=== PATIENT | female | born 2000 ===

== ENCOUNTER 2019-03-16 12:55 | Inpatient (IN) | payer OTHER ==
[2019-03-16] VITALS (14 sets, daily range): BP systolic 123–154; BP diastolic 71–95
[~2019-03-16] VITALS: Ht 152.4 cm; Wt 75.1 kg
[2019-03-16] MEDS ORDERED: LACTATED RINGERS 1,000 ML IV ONE ×2 (16:15→20:30)
[2019-03-16] MEDS ORDERED: D5 LR IV SOLUTION 1,000 ML IV ONE (17:52)
[2019-03-16] MEDS ORDERED: D5 LR IV SOLUTION 1,000 ML IV SCH (18:04)
[2019-03-16] MEDS ORDERED: MINERAL OIL CONCENTRATE 99.9% 15 ML UDC PO PRN (18:15)
[2019-03-16 18:42] LABS: BASOPHILS % (AUTO) 0 % (0-10); EOSINOPHILS # (AUTO) 0.1 10^3/uL (0.0-0.3); EOSINOPHILS % (AUTO) 0 % (0-10); HEMATOCRIT 37 % (35-52); HEMOGLOBIN 12.3 G/DL (11.5-16.0); LYMPHOCYTES # (AUTO) 1.6 X 10^3 (1.0-4.0); LYMPHOCYTES % (AUTO) 11 % (12-44); MEAN CORPUSCULAR HEMOGLOBIN 25 PG (25-34); MEAN CORPUSCULAR HGB CONC 34 G/DL (32-36); MEAN CORPUSCULAR VOLUME 76 FL (80-99); MEAN PLATELET VOLUME 10.9 FL (7.4-10.4); MONOCYTES # (AUTO) 0.6 X 10^3 (0.0-1.0); MONOCYTES % (AUTO) 4 % (0-12); NEUTROPHILS # (AUTO) 12.5 X 10^3 (1.8-7.8); NEUTROPHILS % (AUTO) 85 % (42-75); PLATELET COUNT 211 10^3/uL (130-400); RED CELL DISTRIBUTION WIDTH 15.8 % (10.0-14.5); WHITE BLOOD COUNT 14.8 10^3/uL (4.3-11.0)
[2019-03-16] MEDS ORDERED: BUPIVACAINE 0.25% 30 ML (SENSORCAINE) VIAL ONE (18:49)
[2019-03-16] MEDS ORDERED: fentaNYL INJECTION 100 MCG/2 ML AMP ONE (18:49)
[2019-03-16] MEDS ORDERED: OXYTOCIN/NORMAL SALINE 500 ML IV ONE (18:59)
[2019-03-16] MEDS ORDERED: LACTATED RINGERS 1,000 ML IV SCH (19:00)
[2019-03-16] MEDS ORDERED: LIDOCAINE 1% INJ 20 ML 20 ML VIAL ONE (19:18)
[2019-03-16] MEDS ORDERED: LIDOCAINE/EPI 2% 1:200,00 (XYLOCAINE) 10 ML VIAL ONE (19:18)
--- NOTE | 2019-03-16 20:05 | History & Physical-OB ---
OB - Chief Complaint & HPI Date/Time Date of Admission: Date of Admission: Mar 16, 2019 at 18:00 Date seen by a Provider: Mar 16, 2019 Time Seen by a Provider: 20:00 Chief Complaint/History OB-Reason for Admission/Chief: Onset of Labor Hx : 1 Hx Para: 0 Expected Date of Delivery: Apr 04, 2019 Gestational Age in Weeks: 37 Gestational Age in Days: 2 Other B+, Ab neg Rub Non Immune Normal 1 hr GTT GBS neg Allergies and Home Medications Allergies Coded Allergies: No Known Drug Allergies (Unverified , 03/16/19) Patient Home Medication List Home Medication List Reviewed: Yes OB - History Hx of Present Care: Yes Ultrasounds: Normal mid trimester US Obstetrical Complications: Other (late care) Medical Complications: None Obstetrical History Hx : 1 Hx Para: 0 Patient Past Medical History Chronic Constipation Social History/Family History HIV/AIDS: No Recent Infectious Disease Expo: No Sexually Transmitted Disease: No Alcohol Use: Denies Use Recreational Drug Use: No 2nd Hand Smoke Exposure: No Immunizations Tetanus Booster (TDap): Less than 5yrs Date of Influenza Vaccine: Mar 08, 2019 Rubella: not immune RPR/VDRL: Negative GBS Status: Negative HBsAG: Negative OB - Admission Exam Physical Exam Vitals: Vital Signs 03/16/19 13:44 Temp 36.0 Pulse 78 Resp 16 Pulse Ox 99 O2 Delivery Room Air HEENT: NCAT Lungs: Clear Abdomen: Gravid Cervical Dilatation: 10cm Effacement: 100% Station: 0 Membranes: Ruptured Amniotic Fluid: Clear Heart Rate: 130's Accelerations: Accelerations Present Decelerations: Early Decelerations Short Term Variability: Present Labs Laboratory Tests Test 03/16/19 18:30 Range/Units White Blood Count 14.8 H 4.3-11.0 10^3/uL Red Blood Count 4.85 4.35-5.85 10^6/uL Hemoglobin 12.3 11.5-16.0 G/DL Hematocrit 37 35-52 % Mean Corpuscular Volume 76 L 80-99 FL Mean Corpuscular Hemoglobin 25 25-34 PG Mean Corpuscular Hemoglobin Concent 34 32-36 G/DL Red Cell Distribution Width 15.8 H 10.0-14.5 % Platelet Count 211 130-400 10^3/uL Mean Platelet Volume 10.9 H 7.4-10.4 FL Neutrophils (%) (Auto) 85 H 42-75 % Lymphocytes (%) (Auto) 11 L 12-44 % Monocytes (%) (Auto) 4 0-12 % Eosinophils (%) (Auto) 0 0-10 % Basophils (%) (Auto) 0 0-10 % Neutrophils # (Auto) 12.5 H 1.8-7.8 X 10^3 Lymphocytes # (Auto) 1.6 1.0-4.0 X 10^3 Monocytes # (Auto) 0.6 0.0-1.0 X 10^3 Eosinophils # (Auto) 0.1 0.0-0.3 10^3/uL Basophils # (Auto) 0.0 0.0-0.1 10^3/uL OB - Assessment/Plan/Diagnosis Assessment Assessment: active labor Admission Dx Labor Term 37 week gestation Admission Status: Inpatient Order (span 2 midnights) Reason for Inpatient Admission: Labor Plan Plan: Expectant Management Other Plan 18 yo @ 37.3 wga here for active labor Plan - Expectant management - Late care Copy Copies To 1: MAGGIE RICH MD, HOLLY R MD Mar 16, 2019 20:05
--- NOTE | 2019-03-16 20:11 | OB Labor & Delivery Record ---
Vag Delivery Note Vag Delivery Note Date of Delivery: 03/16/19 Preoperative Diagnosis: Josephine Tony is a (18 /Para 1 / 0,Gestational Age (wks)37with here for active labor Postoperative Diagnosis: Same Surgeon: MAGGIE RICH Supervisor Shearing: None Anesthesia: None Delivery Type: @ 191 Findings: Viable SGA female , apgars 8/9, weight 5#12, 2610 grams Lacerations: 3rd degree Intact placenta with 3 vessel cord. No nuchal cord, body cord or shoulder dystocia Estimated Blood Loss: 150 ml Complications: None Condition: Stable Description of Procedure: The patient is a 18 year old female who presented in active labor. She was admitted and informed consent was obtained. Her labor course was unremarkable. She progressed to complete dilatation and began to push. She was then set up for delivery. The 's head was delivered atraumatically in the HEIDI position. The shoulders and remainder of the infant's body were then delivered without difficulty. Upon delivery, the head was held below the level of the perineum and the mouth and nares were bulb suctioned. The cord was doubly clamped and cut by family member and the infant was handed off to the pediatric staff. An intact placenta with 3-vessel cord delivered via [place] and there was found to be minimal bleeding.~ Vigorous fundal massage was performed and the fundus was found to be firm. IV oxytocin was given. Examination of the vagina and perineum revealed a 3rd degree laceration repaired in the usual fashion with 3-0 vicryl suture. Following the repair, sponge, instrument and needle counts were correct. Mom and baby were both in stable condition in the labor suite. Vitals - Labs Vital Signs - I&O Vital Signs Date Time Temp Pulse Resp B/P (MAP) Pulse Ox O2 Delivery O2 Flow Rate FiO2 03/16/19 13:44 36.0 78 16 99 Room Air Labs Laboratory Tests 03/16/19 18:30: White Blood Count 14.8H, Red Blood Count 4.85, Hemoglobin 12.3, Hematocrit 37, Mean Corpuscular Volume 76L, Mean Corpuscular Hemoglobin 25, Mean Corpuscular Hemoglobin Concent 34, Red Cell Distribution Width 15.8H, Platelet Count 211, Mean Platelet Volume 10.9H, Neutrophils (%) (Auto) 85H, Lymphocytes (%) (Auto) 11L, Monocytes (%) (Auto) 4, Eosinophils (%) (Auto) 0, Basophils (%) (Auto) 0, Neutrophils # (Auto) 12.5H, Lymphocytes # (Auto) 1.6, Monocytes # (Auto) 0.6, Eosinophils # (Auto) 0.1, Basophils # (Auto) 0.0 MAGGIE RICH MD Mar 16, 2019 20:11
[2019-03-16] MEDS ORDERED: OXYTOCIN/NORMAL SALINE 500 ML IV SCH (20:12)
[2019-03-16] MEDS ORDERED: MEASLES,MUMPS,RUBELLA 1 EA INJ SQ ONE (20:15)
[2019-03-16] MEDS ORDERED: WITCH HAZEL(TUCKS) 40 EA JAR TOP PRN (20:15)
[2019-03-16] MEDS ORDERED: BENZOCAINE/MENTHOL (DERMOPLAST) 60 ML CAN TP PRN (20:15)
[2019-03-16] MEDS: DOCUSATE SODIUM 100 MG (COLACE) CAP PO SCH (21:00)
[2019-03-16] MEDS ORDERED: CATHETER FLUSH 10 ML SYR IV SCH ×2 (22:00)
[2019-03-17] MEDS: IBUPROFEN 600 MG (MOTRIN) TAB PO SCH ×4 (02:08→21:25)
[2019-03-17 02:30] VITALS: BP 120/72
[2019-03-17 05:35] LABS: BASOPHILS % (AUTO) 0 % (0-10); EOSINOPHILS % (AUTO) 0 % (0-10); HEMATOCRIT 32 % (35-52); HEMOGLOBIN 10.6 G/DL (11.5-16.0); LYMPHOCYTES # (AUTO) 1.9 X 10^3 (1.0-4.0); LYMPHOCYTES % (AUTO) 11 % (12-44); MEAN CORPUSCULAR HGB CONC 33 G/DL (32-36); MEAN CORPUSCULAR VOLUME 76 FL (80-99); MEAN PLATELET VOLUME 10.9 FL (7.4-10.4); MONOCYTES % (AUTO) 6 % (0-12); NEUTROPHILS # (AUTO) 13.5 X 10^3 (1.8-7.8); NEUTROPHILS % (AUTO) 82 % (42-75); PLATELET COUNT 191 10^3/uL (130-400); RED CELL DISTRIBUTION WIDTH 15.6 % (10.0-14.5); WHITE BLOOD COUNT 16.4 10^3/uL (4.3-11.0)
[2019-03-17 05:37] LABS: MEAN CORPUSCULAR HEMOGLOBIN 25 PG (25-34)
[2019-03-17 08:00] VITALS: BP 114/63
[2019-03-17] MEDS ORDERED: DIBUCAINE (NUPERCAINAL) 1% OINT 30 GM ONE (08:14)
[2019-03-17] MEDS: DOCUSATE SODIUM 100 MG (COLACE) CAP PO SCH ×2 (08:19→21:24)
[2019-03-17] MEDS ORDERED: DIBUCAINE (NUPERCAINAL) 1% OINT 30 GM TOP PRN (08:30)
[2019-03-17 12:00] VITALS: BP 106/65
[2019-03-17] MEDS: ACETAMINOPHEN 500 MG TAB (TYLENOL) PO SCH ×2 (12:08→17:45)
[2019-03-17 17:00] VITALS: BP 115/68
--- NOTE | 2019-03-17 18:51 | Progress Note ---
Subjective Subjective/Events-last exam No complaints. Pain controlled, bleeding slowed. Objective Exam Last Set of Vital Signs Vital Signs Date Time Temp Pulse Resp B/P (MAP) Pulse Ox O2 Delivery O2 Flow Rate FiO2 03/17/19 12:00 36.6 85 18 106/65 (79) 99 Room Air Capillary Refill : Less Than 3 Seconds I&O Intake and Output 03/17/19 00:00 Intake Total 1000 ml Balance 1000 ml Intake IV Total 1000 ml Daily Weight Change No General: Alert, No Acute Distress Psych/Mental Status: Mood NL Results/Procedures Lab Laboratory Tests 03/17/19 05:17: White Blood Count 16.4H, Red Blood Count 4.16L, Hemoglobin 10.6L, Hematocrit 32L , Mean Corpuscular Volume 76L, Mean Corpuscular Hemoglobin 25, Mean Corpuscular Hemoglobin Concent 33, Red Cell Distribution Width 15.6H, Platelet Count 191, Mean Platelet Volume 10.9H, Neutrophils (%) (Auto) 82H, Lymphocytes (%) (Auto) 11L, Monocytes (%) (Auto) 6, Eosinophils (%) (Auto) 0, Basophils (%) (Auto) 0, Neutrophils # (Auto) 13.5H, Lymphocytes # (Auto) 1.9, Monocytes # (Auto) 1.0, Eosinophils # (Auto) 0.0, Basophils # (Auto) 0.0 Assessment/Plan Assessment/Plan (1) Status post vaginal delivery Assessment & Plan: s/p at 37w2d -routine care - anticipate DC home tomorrow. Clinical Quality Measures DVT/VTE Risk/Contraindication: Risk Factor Score Per Nursin RFS Level Per Nursing on Admit: 2=Moderate COURT PENNY DO Mar 17, 2019 18:51
[2019-03-17 21:21] VITALS: BP 102/63
[2019-03-18] MEDS: ACETAMINOPHEN 500 MG TAB (TYLENOL) PO SCH ×3 (00:30→14:50)
[2019-03-18 03:15] VITALS: BP 109/58
[2019-03-18] MEDS: IBUPROFEN 600 MG (MOTRIN) TAB PO SCH ×3 (03:17→14:50)
[2019-03-18] MEDS: DOCUSATE SODIUM 100 MG (COLACE) CAP PO SCH (08:43)
[2019-03-18 08:45] VITALS: BP 115/64
[2019-03-18] MEDS ORDERED: IBUP-844 PO (13:25)
--- NOTE | 2019-03-18 13:27 | Short Stay Summary ---
Discharge Summary Hospital Course Problems/Dx: (1) Status post vaginal delivery Assessment & Plan: s/p at 37w2d -routine care Final Diagnosis: see Problem List Hospital Course Date of Admission: Mar 16, 2019 at 18:00 Date of Discharge: 03/18/19 Discharge Diagnosis: see Problem List Hospital Course: Routine care Labs and Pending Lab Test: Assessment/Pt Instructions follow-up with Dr. Freire in 6wk Discharge Instructions Discharge Diet: No Restrictions Activity as Tolerated: Yes Discharge Physical Examination General Appearance: Alert, Oriented X3, Cooperative Psych/Mental Status: Mood NL Allergies: Coded Allergies: No Known Drug Allergies (Unverified , 03/16/19) Copy Copies To 1: MAGGIE FREIRE MD Discharge Summary Date of Admission Mar 16, 2019 at 18:00 Date of Discharge Clinical Quality Measures DVT/VTE Risk/Contraindication: Risk Factor Score Per Nursin RFS Level Per Nursing on Admit: 2=Moderate COURT PENNY DO Mar 18, 2019 13:27
[2019-03-18 14:22] VITALS: BP 107/55
[2019-03-18 17:55] VITALS: BP 107/55
== END 2019-03-18 17:55 | disposition home or self-care (01) | DRG 768 ==
LOC: WSo 12:55 → LDRP 12:55 → WSo 17:59 → LDRP 18:00
PROVIDERS: ADMIT Family Medicine; ATTEND Family Medicine
PROC: 0DQR0ZZ Repair Anal Sphincter, Open Approach (ICD-10-PCS; principal; 2019-03-16)
PROC: 10E0XZZ Delivery of Products of Conception, External Approach (ICD-10-PCS; 2019-03-16)
DX: O76 Abnormality in fetal heart rate and rhythm complicating labor and delivery (principal); Z37.0 Single live birth; O70.20 Third degree perineal laceration during delivery, unspecified; Z3A.37 37 weeks gestation of pregnancy; Z23 Encounter for immunization
CPT/HCPCS: 36415; 85025; 86850; 86900; 86901; 90707; 99212

== ENCOUNTER 2020-06-17 04:17 | Outpatient (CLI) | payer SELFPAY ==
[~2020-06-17 04:17] MED LIST: IBUP-844 PO
[2020-06-17 05:55] VITALS: BP 114/63
[2020-06-17 05:59] VITALS: BP 114/63
[2020-06-17 06:19] VITALS: BP 114/63
[2020-06-17 08:32] LABS: BILIRUBIN,URINE NEGATIVE (NEGATIVE); CLARITY,URINE CLEAR; COLOR,URINE YELLOW; GLUCOSE, URINE (UA) NEGATIVE (NEGATIVE); KETONES,URINE NEGATIVE (NEGATIVE); LEUKOCYTE ESTERASE ,URINE 1+ (NEGATIVE); NITRITE,URINE NEGATIVE (NEGATIVE); PROTEIN,URINE NEGATIVE (NEGATIVE)
[2020-06-17 08:47] LABS: BACTERIA,URINE FEW /HPF
[2020-06-17 08:48] LABS: AMORPHOUS SEDIMENT,UR RARE AMOR PHOSPHATE /LPF
--- NOTE | 2020-06-18 07:44 | Physician Query-Final Dx ---
DUARTE FLOWERS 06/18/20 0744: Clinic Account Progress/Dx Physician Query: Please give diagnosis Please include # weeks gestation Date of Service Jun 17, 2020 at 04:17 BEAR LANGFORD MD 06/19/20 0641: Clinic Account Progress/Dx DIAGNOSIS: Diagnosis 1. IUP in 3rd trimester 2. Non labor 3.. Lack of smell (covid negative) DUARTE FLOWERS Jun 18, 2020 07:44 BEAR LANGFORD MD Jun 19, 2020 06:41
== END 2020-06-17 06:15 ==
LOC: WSo 04:17 → LDRP 04:17 → WSo 06:15
PROVIDERS: ATTEND Family Medicine
DX: O26.899 Other specified pregnancy related conditions, unspecified trimester (principal); Z3A.00 Weeks of gestation of pregnancy not specified
CPT/HCPCS: 81000; G0463; U0002; 87635; 99213

== ENCOUNTER 2020-07-03 16:24 | Inpatient (IN) | payer OTHER ==
[~2020-07-03] VITALS: Ht 154.9 cm; Wt 80.5 kg
[2020-07-03] VITALS (10 sets, daily range): BP systolic 94–118; BP diastolic 54–86
[2020-07-03] MEDS: D5 LR IV SOLUTION 1,000 ML IV SCH (17:56)
[2020-07-03] MEDS ORDERED: TERBUTALINE INJ 1 MG/ML (BRETHINE) AMP ONE (18:12)
[2020-07-03] MEDS ORDERED: METOCLOPRAMIDE INJ 10 MG/2 ML (REGLAN) ONE (18:21)
[2020-07-03] MEDS ORDERED: CITRIC ACID/SOB CIT (BICITRA) 30 ML UDC ONE (18:22)
[2020-07-03] MEDS ORDERED: FAMOTIDINE 20MG/2ML IV (PEPCID) ONE (18:22)
[2020-07-03] MEDS ORDERED: LACTATED RINGERS 1,000 ML IV PRN ×2 (18:30)
[2020-07-03] MEDS ORDERED: METOCLOPRAMIDE INJ 10 MG/2 ML (REGLAN) IV ONE (18:30)
[2020-07-03] MEDS ORDERED: TERBUTALINE INJ 1 MG/ML (BRETHINE) AMP SC ONE (18:30)
[2020-07-03] MEDS ORDERED: FAMOTIDINE 20MG/2ML IV (PEPCID) IV ONE (18:30)
[2020-07-03] MEDS ORDERED: CITRIC ACID/SOB CIT (BICITRA) 30 ML UDC PO ONE (18:30)
[2020-07-03] MEDS ORDERED: fentaNYL INJ 100 MCG/2 ML AMP ONE (18:32)
[2020-07-03 18:33] LABS: BASOPHILS # (AUTO) 0.1 10^3/uL (0.0-0.1); BASOPHILS % (AUTO) 0 % (0-10); EOSINOPHILS # (AUTO) 0.1 10^3/uL (0.0-0.3); EOSINOPHILS % (AUTO) 1 % (0-10); HEMATOCRIT 34 % (35-52); HEMOGLOBIN 10.7 g/dL (11.5-16.0); LYMPHOCYTES # (AUTO) 1.5 10^3/uL (1.0-4.0); LYMPHOCYTES % (AUTO) 13 % (12-44); MEAN CORPUSCULAR HEMOGLOBIN 23 pg (25-34); MEAN CORPUSCULAR HGB CONC 32 g/dL (32-36); MEAN CORPUSCULAR VOLUME 73 fL (80-99); MEAN PLATELET VOLUME 10.3 fL (9.0-12.2); MONOCYTES # (AUTO) 0.6 10^3/uL (0.0-1.0); MONOCYTES % (AUTO) 5 % (0-12); NEUTROPHILS # (AUTO) 9.2 10^3/uL (1.8-7.8); NEUTROPHILS % (AUTO) 80 % (42-75); PLATELET COUNT 164 10^3/uL (130-400); WHITE BLOOD COUNT 11.5 10^3/uL (4.3-11.0)
--- NOTE | 2020-07-03 18:35 | Consultation ---
History of Present Illness History of Present Illness Patient Consulted On(maría/time) 07/03/20 18:26 Date Seen by Provider: July 03, 2020 Time Seen by Provider: 18:20 Reason for Visit: late decelerations History of Present Illness Patient of Dr. Freire who presented to labor and delivery from the office due to contractions with variable decelerations. She is approximately 39 weeks p regnant. she has had two visits, today being the second. She had a baby 1 year ago. She has a possible history of undiagnosed Hirsprungs disease and reportedly had over 10 lbs of feces out during her last delivery. Her SO states she had a small BM yesterday, but hasn't had a large BM in a very long time. She started contractions last night and went to the clinic. There she was shivani every 3 minutes and had variable decelerations. On the monitor here, she is having late decelerations. It is nearly impossible to check her cervix due to the large mass of feces in the rectal vault. We have given a dose of terbutaline to decrease the contractions, but she is still having decelerations and is remote from delivery. Will plan an primary section. Risks, including bleeding, infection, injury to bowel, bladder and ureter has been explained the the patient. Co nsents were signed. Will use prophylactic antibiotics and SCDS Allergies and Home Medications Allergies Coded Allergies: No Known Drug Allergies (Unverified , 03/16/19) Home Medications Unable to Obtain Active Prescriptions or Reported Meds Patient Home Medication List Home Medication List Reviewed: Yes Past Uswqqbw-Wmbfxl-Pqsitz Hx Patient Social History 2nd Hand Smoke Exposure: No Recent Hopitalizations: No Immunizations Up To Date Tetanus Booster (TDap): Less than 5yrs PED Vaccines UTD: Yes Date of Influenza Vaccine: Mar 08, 2019 Seasonal Allergies Seasonal Allergies: No Past Medical History Surgeries: No Respiratory: No Cardiac: No Neurological: No Sexually Transmitted Disease: No HIV/AIDS: No Genitourinary: No Gastrointestinal: No Musculoskeletal: No Endocrine: No HEENT: No Loss of Vision: Denies Hearing Impairment: Denies Cancer: No Psychosocial: No Integumentary: No Blood Disorders: No Family Medical History Completed stroke PATERNAL GRANDFATHER Diabetes mellitus 19 FATHER 19 MOTHER MATERNAL GRANDFATHER PATERNAL GRANDFATHER Kidney disease 19 MOTHER Seizure disorder 19 MOTHER Visual disorder 19 FATHER 19 MOTHER Review of Systems-General Constitutional: no symptoms reported Respiratory: no symptoms reported Gastrointestinal: other (states she has had three BM during ) Musculoskeletal: no symptoms reported Physical Exam-General Problems Physical Exam Vital Signs Capillary Refill : General Appearance: WD/WN, no apparent distress Respiratory: chest non-tender, lungs clear, normal breath sounds Cardiovascular: regular rate, rhythm Comments cervical exam not possible contractions every 3 minutes, strong FHT 135 with accelerations but late decelerations, repetitive. Assessment/Plan Assessment/Plan Admission Diagnosis/Plan 1. 19 year old at 39 + weeks gestation 2. Non reassuring status remote from delivery\ 3. probable megacolon. Aggressive bowel regimen post , consider disimpaction Plan primary section Peds - [facility] Admission Status: Inpatient Order (span 2 midnights) JONG THOMSON DO July 03, 2020 18:35
[2020-07-03] MEDS ORDERED: ceFAZolin 2 GM IV Premixed 50 ML ONE (18:47)
[2020-07-03 18:55] LABS: ALANINE AMINOTRANSFERASE 9 U/L (0-55); ALBUMIN 3.3 GM/DL (3.2-4.5); ALKALINE PHOSPHATASE 210 U/L (40-136); BILIRUBIN,TOTAL 0.6 MG/DL (0.1-1.0); BUN/CREATININE RATIO 12; CALCIUM 8.6 MG/DL (8.5-10.1); CARBON DIOXIDE 23 MMOL/L (21-32); CHLORIDE 106 MMOL/L (98-107); CREATININE SERUM 0.67 MG/DL (0.60-1.30); GFR ESTIMATED > 60; GLUCOSE 97 MG/DL (70-105); POTASSIUM 3.6 MMOL/L (3.6-5.0); SODIUM 136 MMOL/L (135-145); TOTAL PROTEIN 7.4 GM/DL (6.4-8.2)
[2020-07-03] MEDS ORDERED: PHENYLEPHRINE 100 MCG/ML 10 ML (ANESTHESIA) SYR ONE (19:10)
[2020-07-03] MEDS ORDERED: ONDANSETRON 4 MG/2 ML (SDV) Z0FRAN ONE (19:10)
[2020-07-03] MEDS ORDERED: OXYTOCIN PRE-MIX DRIP 500 ML IV ONE ×2 (19:10→19:53)
[2020-07-03] MEDS ORDERED: KETOROLAC 30 MG/ML VIAL ONE (19:19)
--- NOTE | 2020-07-03 19:47 | History & Physical-OB ---
OB - Chief Complaint & HPI Date/Time Date of Admission: Date of Admission: July 03, 2020 at 18:56 Date seen by a Provider: July 03, 2020 Time Seen by a Provider: 18:45 Chief Complaint/History OB-Reason for Admission/Chief: Obstetrical Complication (Variable Decerations in clinic) Hx : 2 Hx Para: 1 Expected Date of Delivery: July 09, 2020 Gestational Age in Weeks: 39 Gestational Age in Days: 1 Indication for : other ( intolerance, Repetitive decerations) Other reason for admission: 19 yo @ 39.1 wga sent here by Dr Freire after seen in clinic with variable decerations. Patient with late care and only had [address] Freire at [facility]. Mother states that she started having ctxs early this AM. Denies any LOF or bleeding. + FM but states that it was decreased today compared to other days. Allergies and Home Medications Allergies Coded Allergies: No Known Drug Allergies (Unverified , 03/16/19) Home Medications Unable to Obtain Active Prescriptions or Reported Meds Patient Home Medication List Home Medication List Reviewed: Yes OB - History Hx of Present Care: No Ultrasounds: Other (26 week US) Information Induced Hypertension: No Maternal Gestational Diabetes: No Hemorrhage: No Obstetrical History Hx : 2 Hx Para: 11 Number of Living Children: 1 Patient Past Medical History Chronic Constipation, Martínez Colon Social History/Family History Smoking Cessation: Never smoker 2nd Hand Smoke Exposure: No Immunizations Hepatitis A: No Hepatitis B: No Tetanus Booster (TDap): Less than 5yrs Date of Influenza Vaccine: Mar 08, 2019 Rubella: immune RPR/VDRL: Negative GBS Status: Unknown HBsAG: Negative OB - Admission Exam Physical Exam HEENT: NCAT Heart: Rhythm Normal Lungs: Clear Abdomen: Gravid Cervical Dilatation: other (Unable to reach cervix due to stool load) Membranes: Intact Decelerations: Variable Decelerations Contractions on Admission: < 5 Minutes Apart Intensity: Moderate Labs Laboratory Tests Test 07/03/20 17:56 Range/Units White Blood Count 11.5 H 4.3-11.0 10^3/uL Red Blood Count 4.67 3.80-5.11 10^6/uL Hemoglobin 10.7 L 11.5-16.0 g/dL Hematocrit 34 L 35-52 % Mean Corpuscular Volume 73 L 80-99 fL Mean Corpuscular Hemoglobin 23 L 25-34 pg Mean Corpuscular Hemoglobin Concent 32 32-36 g/dL Red Cell Distribution Width 16.1 H 10.0-14.5 % Platelet Count 164 130-400 10^3/uL Mean Platelet Volume 10.3 9.0-12.2 fL Immature Granulocyte % (Auto) 1 % Neutrophils (%) (Auto) 80 H 42-75 % Lymphocytes (%) (Auto) 13 12-44 % Monocytes (%) (Auto) 5 0-12 % Eosinophils (%) (Auto) 1 0-10 % Basophils (%) (Auto) 0 0-10 % Neutrophils # (Auto) 9.2 H 1.8-7.8 10^3/uL Lymphocytes # (Auto) 1.5 1.0-4.0 10^3/uL Monocytes # (Auto) 0.6 0.0-1.0 10^3/uL Eosinophils # (Auto) 0.1 0.0-0.3 10^3/uL Basophils # (Auto) 0.1 0.0-0.1 10^3/uL Immature Granulocyte # (Auto) 0.1 0.0-0.1 10^3/uL Sodium Level 136 135-145 MMOL/L Potassium Level 3.6 3.6-5.0 MMOL/L Chloride Level 106 98-107 MMOL/L Carbon Dioxide Level 23 21-32 MMOL/L Anion Gap 7 5-14 MMOL/L Blood Urea Nitrogen 8 7-18 MG/DL Creatinine 0.67 0.60-1.30 MG/DL Estimat Glomerular Filtration Rate > 60 BUN/Creatinine Ratio 12 Glucose Level 97 70-105 MG/DL Calcium Level 8.6 8.5-10.1 MG/DL Corrected Calcium 9.2 8.5-10.1 MG/DL Total Bilirubin 0.6 0.1-1.0 MG/DL Aspartate Amino Transf (AST/SGOT) 14 5-34 U/L Alanine Aminotransferase (ALT/SGPT) 9 0-55 U/L Alkaline Phosphatase 210 H 40-136 U/L Total Protein 7.4 6.4-8.2 GM/DL Albumin 3.3 3.2-4.5 GM/DL OB - Assessment/Plan/Diagnosis Assessment Assessment: active labor, other ( intolerance) Admission Dx Labor Third Trimester 39 week gestation intolerance to labor Admission Status: Inpatient Order (span 2 midnights) Reason for Inpatient Admission: Labor Plan Other Plan 19 yo @ 39.1 wga with late care, variable decelerations Plan - intolerance getting worse with contractions, consult Dr Pradhan for Primary C/s - Martínez Colon: would consult General surgery during admission - Plans to bottle feed - labs pending Copy Copies To 1: MAGGIE FREIRE MD, HOLLY R MD July 03, 2020 19:47
--- NOTE | 2020-07-03 19:55 | Cesarean Section Operative ---
Procedure Procedure Note Pre-operative Diagnosis: Josephine Tony is a 19 /Para 2 / 1,Gestational Age 39 1/7 week with contractions, non reassuring status remote from delivery, megacolon with non descent Post-operative Diagnosis: same, severe constipation Procedure: primary low transverse section Physician: JONG THOMSON Golf Cart Assembler: Raphael Roque, MS III Estimated blood loss: 400 mL Disposition: stable Findings: Viable male , Apgars 7/, weight 6#14 ounces, intact placenta, 3vc, normal appearing uterus, tubes, and ovaries. particulate meconium Indications:Josephine Tony is a 19 /Para 2 / 1,Gestational Age 39 1/7 week with contractions, non reassuring status remote from delivery, Procedure Details: The patient was seen in pre-op and the procedure was discussed with the patient in full, including the risks, benefits, and alternatives. All questions were answered. The patient was taken to the operating room and a time out was performed, verifying patient and procedure. Fetus was noted to be in the left abdomen with the head off to the left but vertex. A large colonic mass was palpable in the left abdomen. After spinal anesthesia was placed by our anesthesia colleagues, the patient was placed in the dorsal supine with leftward tilt for uterine displacement.~ Her abdomen was then prepped and draped in the typical sterile fashion. A Pfannenstiel skin incision was made using a scalpel and carried down through the underlying fascia. The fascia was incised in the midline and tented up using Nicola clamps. On both the inferior and superior fascia side the rectus muscle was dissected off bluntly and sharply using Mason scissors. The peritoneum was identified and entered bluntly in the midline. This was then stretched laterally using manual strength. After entering the abdominal cavity and confirming lack of intraperitoneal adhesions, a large Lauro retractor was placed and the lower uterine segment was visualized. A very large loop of colon was noted in the le ft pelvis and the uterus was shifted to the left. the bladder was not able to empty completely due to a large colorectal mass of stool in the pelvis posterior to the bladder and uterus. The cervis was above this. A scalpel was utilized to make a low transverse uterine incision. Amniotomy was performed with an Allis clamp with return of particulate meconium stained fluid. The 's head was grasped and brought to the level of the incision with assistance of the silastic suction. Fundal pressure was applied and was delivered without difficulty. Mouth and nares were suctioned with bulb suction. After the umbilical cord was clamped and cut, the infant was handed off to the pediatric staff. A sample of cord blood was then obtained. The placenta was delivered intact via uterine massage. The uterus was cleared of all clots and debris. The uterine incision was closed using 0 Vicryl in a running locked fashion. A second imbricated layer was placed using 0 Vicryl in a running fashion as well. Bilateral tubes and ovaries appeared normal. The abdominal gutters were cleared of all clots and debris. A final check of the uterine incision showed it to be hemostatic. It was now noted that there was a large amount of firm stool noted in the colon up to and beyone the spleen There was a 6-8 cm ball in the left upper quadrant, near the spleen. there was an additional loop of bowel in the left pelvis lateral to the previously noted one. This also contained firm stool The left Infundibulopelvic ligament was noted to be stretched and attenuated over the loop of bowel and the uterus was shifted into the left pelvis and abdominal cavity. Posterior to the uterus, there was a very large colorectal mass of stool, approximately 12 cm by 12 cm or larger. The peritoneum was closed using 3-0 Vicryl in a running fashion. The fascia was closed with 0 PDS in a running fashion. The subcutaneous space was hemostatic, and irrigated. The subcutaneous space was closed with 3-0 Vicryl in several single interrupted stitches. The skin was then closed using 4-0 Monocryl in a running subcuticular fashion. The skin edges were reapproximated together and were hemostatic. A pressure dressing was applied. All sponge, lap and needle counts were correct at the end of the procedure per nursing. Vitals - Labs Labs Laboratory Tests 07/03/20 17:56: White Blood Count 11.5H, Red Blood Count 4.67, Hemoglobin 10.7L, Hematocrit 34L, Mean Corpuscular Volume 73L, Mean Corpuscular Hemoglobin 23L, Mean Corpuscular Hemoglobin Concent 32, Red Cell Distribution Width 16.1H, Platelet Count 164, Mean Platelet Volume 10.3, Immature Granulocyte % (Auto) 1, Neutrophils (%) (Auto) 80H, Lymphocytes (%) (Auto) 13, Monocytes (%) (Auto) 5, Eosinophils (%) (Auto) 1, Basophils (%) (Auto) 0, Neutrophils # (Auto) 9.2H, Lymphocytes # (Auto) 1.5, Monocytes # (Auto) 0.6, Eosinophils # (Auto) 0.1, Basophils # (Auto) 0.1, Immature Granulocyte # (Auto) 0.1, Sodium Level 136, Potassium Level 3.6, Chloride Level 106, Carbon Dioxide Level 23, Anion Gap 7, Blood Urea Nitrogen 8, Creatinine 0.67, Estimat Glomerular Filtration Rate > 60, BUN/Creatinine Ratio 12, Glucose Level 97, Calcium Level 8.6, Corrected Calcium 9.2, Total Bilirubin 0.6, Aspartate Amino Transf (AST/SGOT) 14, Alanine Aminotransferase (ALT/SGPT) 9, Alkaline Phosphatase 210H, Total Protein 7.4, Albumin 3.3 JONG THOMSON DO July 03, 2020 19:54
[2020-07-03] MEDS ORDERED: MEASLES,MUMPS,RUBELLA 1 EA INJ SC SCH (20:00)
[2020-07-03] MEDS ORDERED: OXYTOCIN PRE-MIX DRIP 500 ML IV SCH (20:00)
[2020-07-03] MEDS ORDERED: morphine INJ 4 MG/ML 1 ML (VIAL/SYRINGE) IVP PRN (20:00)
[2020-07-03] MEDS ORDERED: NALOXONE 0.4 MG/ML 1 ML (NARCAN) VIAL IV PRN (20:00)
[2020-07-03] MEDS ORDERED: diphenhydrAMINE 50 MG/ML INJ (BENADRYL) IV PRN (20:00)
[2020-07-03] MEDS ORDERED: ONDANSETRON 4 MG/2 ML (SDV) Z0FRAN IV PRN (20:00)
[2020-07-03] MEDS ORDERED: TETANUS,DIPTH,PERTUSS P/F (BOOSTRIX) 0.5 ML VIAL IM SCH (20:00)
[2020-07-03] MEDS ORDERED: polyethylene glycoL POWDER 17 GM (MIRALAX) PACK PO ONE (20:00)
[2020-07-03] MEDS: KETOROLAC 30 MG/ML VIAL IV SCH (20:09)
[2020-07-04] MEDS: KETOROLAC 30 MG/ML VIAL IV SCH ×3 (02:16→15:14)
[2020-07-04] MEDS: DOCUSATE SODIUM 100 MG (COLACE) CAP PO SCH ×3 (02:16→21:00)
[2020-07-04 02:17] VITALS: BP 113/59
[2020-07-04 05:24] LABS: BASOPHILS # (AUTO) 0.1 10^3/uL (0.0-0.1); BASOPHILS % (AUTO) 0 % (0-10); EOSINOPHILS # (AUTO) 0.1 10^3/uL (0.0-0.3); EOSINOPHILS % (AUTO) 1 % (0-10); HEMATOCRIT 26 % (35-52); HEMOGLOBIN 8.1 g/dL (11.5-16.0); LYMPHOCYTES # (AUTO) 1.5 10^3/uL (1.0-4.0); LYMPHOCYTES % (AUTO) 11 % (12-44); MEAN CORPUSCULAR HEMOGLOBIN 23 pg (25-34); MEAN CORPUSCULAR HGB CONC 31 g/dL (32-36); MEAN CORPUSCULAR VOLUME 74 fL (80-99); MEAN PLATELET VOLUME 10.5 fL (9.0-12.2); MONOCYTES % (AUTO) 7 % (0-12); NEUTROPHILS # (AUTO) 10.4 10^3/uL (1.8-7.8); NEUTROPHILS % (AUTO) 80 % (42-75); PLATELET COUNT 132 10^3/uL (130-400); WHITE BLOOD COUNT 13.1 10^3/uL (4.3-11.0)
[2020-07-04 05:25] VITALS: BP 110/57
[2020-07-04] MEDS ORDERED: polyethylene glycoL POWDER 17 GM (MIRALAX) PACK PO SCH (08:00)
[2020-07-04 08:15] VITALS: BP 122/71
[2020-07-04] MEDS: ACETAMINOPHEN 500 MG TAB (TYLENOL) PO SCH ×2 (08:33→20:39)
--- NOTE | 2020-07-04 08:38 | Anesthesia-Regional Post-Op ---
Regional Patient Condition Mental Status: Alert, Oriented x3 Circulation: Same as Pre-Op Headache: Absent Sensation: Full Recovery Motor Block: Absent Post Op Complications Complications None Follow Up Care/Instructions Patient Instructions None needed. Anesthesia/Patient Condition Patient is doing well, no complaints, stable vital signs, no apparent adverse anesthesia problems. No complications reported per nursing. BERNABE ROSA CRNA July 04, 2020 08:38
--- NOTE | 2020-07-04 08:56 | Postpartum Progress Note ---
Post Op Post-operative Day #1 s/p PLTCS Subjective: Patient is without complaints. Ambulating, voiding after knight removed. Tolerating a diet without nausea or vomiting. Normal lochia. Pain is well controlled with oral pain medications. not Passing flatus. not breast feeding. Objective: Laboratory Tests Test 07/03/20 17:56 07/04/20 05:08 Range/Units White Blood Count 11.5 H 13.1 H 4.3-11.0 10^3/uL Red Blood Count 4.67 3.50 L 3.80-5.11 10^6/uL Hemoglobin 10.7 L 8.1 #L 11.5-16.0 g/dL Hematocrit 34 L 26 L 35-52 % Mean Corpuscular Volume 73 L 74 L 80-99 fL Mean Corpuscular Hemoglobin 23 L 23 L 25-34 pg Mean Corpuscular Hemoglobin Concent 32 31 L 32-36 g/dL Red Cell Distribution Width 16.1 H 16.3 H 10.0-14.5 % Platelet Count 164 132 130-400 10^3/uL Mean Platelet Volume 10.3 10.5 9.0-12.2 fL Immature Granulocyte % (Auto) 1 1 % Neutrophils (%) (Auto) 80 H 80 H 42-75 % Lymphocytes (%) (Auto) 13 11 L 12-44 % Monocytes (%) (Auto) 5 7 0-12 % Eosinophils (%) (Auto) 1 1 0-10 % Basophils (%) (Auto) 0 0 0-10 % Neutrophils # (Auto) 9.2 H 10.4 H 1.8-7.8 10^3/uL Lymphocytes # (Auto) 1.5 1.5 1.0-4.0 10^3/uL Monocytes # (Auto) 0.6 1.0 0.0-1.0 10^3/uL Eosinophils # (Auto) 0.1 0.1 0.0-0.3 10^3/uL Basophils # (Auto) 0.1 0.1 0.0-0.1 10^3/uL Immature Granulocyte # (Auto) 0.1 0.1 0.0-0.1 10^3/uL Sodium Level 136 135-145 MMOL/L Potassium Level 3.6 3.6-5.0 MMOL/L Chloride Level 106 98-107 MMOL/L Carbon Dioxide Level 23 21-32 MMOL/L Anion Gap 7 5-14 MMOL/L Blood Urea Nitrogen 8 7-18 MG/DL Creatinine 0.67 0.60-1.30 MG/DL Estimat Glomerular Filtration Rate > 60 BUN/Creatinine Ratio 12 Glucose Level 97 70-105 MG/DL Calcium Level 8.6 8.5-10.1 MG/DL Corrected Calcium 9.2 8.5-10.1 MG/DL Total Bilirubin 0.6 0.1-1.0 MG/DL Aspartate Amino Transf (AST/SGOT) 14 5-34 U/L Alanine Aminotransferase (ALT/SGPT) 9 0-55 U/L Alkaline Phosphatase 210 H 40-136 U/L Total Protein 7.4 6.4-8.2 GM/DL Albumin 3.3 3.2-4.5 GM/DL Physical Exam: General - Alert and oriented, no apparent distress Abdomen - Soft, appropriately tender to palpation, non-distended, fundus firm at umbilicus Incision - clean, dry and intact; no erythema or induration, no drainage Extremities - no edema, negative Hi's bilaterally 1 Assessment: 1 post-operative day # 1, status post PLTCS. Recovering well, hemodynamically stable 2. Acute blood loss anemia 3. chronic constipation with impaction, possible Hirschprung's? Plan: Routine post-operative care. Encourage breast feeding. Encourage ambulation. XRAY pending. General surgery consult placed. VTE prophylaxis: SCDs. Ferrous sulfate supplementation. Plan for discharge tomorrow Vitals - Labs Vital Signs - I&O Vital Signs Date Time Temp Pulse Resp B/P (MAP) Pulse Ox O2 Delivery O2 Flow Rate FiO2 07/04/20 05:25 36.7 92 18 110/57 (74) 99 Room Air 07/04/20 02:17 36.0 95 18 113/59 (77) 99 Room Air 07/03/20 22:47 Room Air 07/03/20 22:10 37.0 88 18 106/55 (72) 96 Room Air 07/03/20 20:40 Room Air 07/03/20 20:40 36.3 20 118/68 (85) 99 Room Air 07/03/20 20:30 18 108/69 (82) 99 Room Air 07/03/20 20:28 Room Air 5/4/21 20:23 Room Air 07/03/20 20:20 18 108/66 (80) 100 Room Air 07/03/20 20:10 20 118/86 (97) 99 Room Air 07/03/20 20:10 Room Air 07/03/20 20:00 18 107/54 (71) 100 Room Air 07/03/20 19:55 36.2 18 94/62 (73) 98 Room Air 07/03/20 19:55 Room Air 07/03/20 18:49 120 18 100 Room Air 07/03/20 18:00 88 18 99 Non Rebreather 15.00 07/03/20 17:40 36.8 78 18 99 Room Air 07/03/20 17:35 36.8 78 18 113/65 (81) 99 Room Air I & O 07/04/20 07:00 Intake Total 400 ml Output Total 1075 ml Balance -675 ml Labs Laboratory Tests 07/03/20 17:56: White Blood Count 11.5H, Red Blood Count 4.67, Hemoglobin 10.7L, Hematocrit 34L, Mean Corpuscular Volume 73L, Mean Corpuscular Hemoglobin 23L, Mean Corpuscular Hemoglobin Concent 32, Red Cell Distribution Width 16.1H, Platelet Count 164, Mean Platelet Volume 10.3, Immature Granulocyte % (Auto) 1, Neutrophils (%) (Auto) 80H, Lymphocytes (%) (Auto) 13, Monocytes (%) (Auto) 5, Eosinophils (%) (Auto) 1, Basophils (%) (Auto) 0, Neutrophils # (Auto) 9.2H, Lymphocytes # (Auto) 1.5, Monocytes # (Auto) 0.6, Eosinophils # (Auto) 0.1, Basophils # (Auto) 0.1, Immature Granulocyte # (Auto) 0.1, Sodium Level 136, Potassium Level 3.6, Chloride Level 106, Carbon Dioxide Level 23, Anion Gap 7, Blood Urea Nitrogen 8, Creatinine 0.67, Estimat Glomerular Filtration Rate > 60, BUN/Creatinine Ratio 12, Glucose Level 97, Calcium Level 8.6, Corrected Calcium 9.2, Total Bilirubin 0.6, Aspartate Amino Transf (AST/SGOT) 14, Alanine Aminotransferase (ALT/SGPT) 9, Alkaline Phosphatase 210H, Total Protein 7.4, Albumin 3.3 07/04/20 05:08: White Blood Count 13.1H, Red Blood Count 3.50L, Hemoglobin 8.1#L, Hematocrit 26L , Mean Corpuscular Volume 74L, Mean Corpuscular Hemoglobin 23L, Mean Corpuscular Hemoglobin Concent 31L, Red Cell Distribution Width 16.3H, Platelet Count 132, Mean Platelet Volume 10.5, Immature Granulocyte % (Auto) 1, Neutrophils (%) (Auto) 80H, Lymphocytes (%) (Auto) 11L, Monocytes (%) (Auto) 7, Eosinophils (%) (Auto) 1, Basophils (%) (Auto) 0, Neutrophils # (Auto) 10.4H, Lymphocytes # (Auto) 1.5, Monocytes # (Auto) 1.0, Eosinophils # (Auto) 0.1, Basophils # (Auto) 0.1, Immature Granulocyte # (Auto) 0.1 JONG THOMSON DO July 04, 2020 08:56
--- NOTE | 2020-07-04 09:44 | Diagnostic Imaging Report ---
INDICATION: Megacolon, post delivery. TECHNIQUE: Single view of the abdomen 8:40 AM CORRELATION STUDY: None FINDINGS: There is large amount of stool within the colon. Somewhat disproportion distal colonic fecal loading present underlying impaction not excluded. Somewhat increased density suggested to the right of midline lower abdomen and pelvis. IMPRESSION: 1. Rather significant stool retention. Distal colonic fecal loading is noted. Question early impaction. 2. Increased density suggested over the right lower quadrant. Nonspecific. Given state could be owing to enlarged uterus. Dictated by: Dictated on workstation # [id number]
[2020-07-04] MEDS ORDERED: polyethylene glycoL Bowel Prep(MIRALAX) 238 GM PO SCH (10:45)
[2020-07-04] MEDS: polyethylene glycoL Bowel Prep(MIRALAX) 238 GM PO SCH ×6 (11:36→19:45)
[2020-07-04 12:30] VITALS: BP 113/66
[2020-07-04 17:00] VITALS: BP 105/64
[2020-07-04] MEDS: IBUPROFEN 600 MG (MOTRIN) TAB PO SCH (20:39)
[2020-07-04 20:40] VITALS: BP 107/62
--- NOTE | 2020-07-04 21:03 | Consultation - Surgery ---
History of Present Illness History of Present Illness Patient Consulted On(maría/time) 07/04/20 20:57 Date Seen by Provider: July 04, 2020 Time Seen by Provider: 10:19 Reason for Visit: late decelerations History of Present Illness Consult requested by Dr. Pradhan for fecal impaction Patient is a 19-year-old female who states that ever since she was a little kid would have lots of issues with bowel movements. Patient states that over the last year she is probably had 3-5 bowel movements that are normal. Patient states when she does have a bowel movement it is large. She has had to have disimpaction previously. Patient had yesterday and has pain from section but otherwise not having any pain. Patient states when she was younger she would have to have disimpaction manually to help with bowel movements as well. She does not have any blood in her stools regularly that she knows of. She denies any nausea vomiting fever sweats chills shortness of breath or chest pain at this time. Patient had abdominal x-ray which was consistent with fecal impaction. Allergies and Home Medications Allergies Coded Allergies: No Known Drug Allergies (Unverified , 03/16/19) Home Medications Unable to Obtain Active Prescriptions or Reported Meds Patient Home Medication List Home Medication List Reviewed: Yes Past Oeumhvs-Czhkiu-Gkojyw Hx Patient Social History Smoking Status: Never a Smoker 2nd Hand Smoke Exposure: No Recent Hopitalizations: No Immunizations Up To Date Tetanus Booster (TDap): Less than 5yrs PED Vaccines UTD: Yes Date of Influenza Vaccine: Mar 08, 2019 Seasonal Allergies Seasonal Allergies: No Surgeries History of Surgeries: Yes Surgeries: Section Respiratory History of Respiratory Disorde: No Cardiovascular History of Cardiac Disorders: No Neurological History of Neurological Disord: No Reproductive System Hx : 2 Hx Para: 11 Hx Total # of Abortions (Spona: 0 Sexually Transmitted Disease: No HIV/AIDS: No Genitourinary History of Genitourinary Disor: No Gastrointestinal History of Gastrointestinal Di: No Musculoskeletal History of Musculoskeletal Dis: No Endocrine History of Endocrine Disorders: No HEENT History of HEENT Disorders: No Loss of Vision: Denies Hearing Impairment: Denies Cancer History of Cancer: No Psychosocial History of Psychiatric Problem: No Integumentary History of Skin or Integumenta: No Blood Transfusions History of Blood Disorders: No Reviewed Nursing Assessment Reviewed/Agree w Nursing PMH: Yes Family Medical History Significant Family History: No Pertinent Family Hx Family Medial History: Completed stroke PATERNAL GRANDFATHER Diabetes mellitus 19 FATHER 19 MOTHER MATERNAL GRANDFATHER PATERNAL GRANDFATHER Kidney disease 19 MOTHER Seizure disorder 19 MOTHER Visual disorder 19 FATHER 19 MOTHER Review of Systems-General Constitutional: No chills, No diaphoresis EENTM: No blurred vision, No double vision Respiratory: No cough, No dyspnea on exertion, No short of breath Cardiovascular: No chest pain, No palpitations Gastrointestinal: constipation; No nausea, No vomiting Genitourinary: No decreased output, No discharge Musculoskeletal: No back pain, No joint pain Skin: No change in color, No change in hair/nails Psychiatric/Neurological: Denies Anxiety, Denies Depressed, Denies Emotional Problems All Other Systems Reviewed Negative Unless Noted: Yes (Negative excepted noted.) Physical Exam-General Problems Physical Exam Vital Signs Vital Signs - First Documented 07/03/20 07/03/20 17:35 18:00 Temp 36.8 Pulse 78 Resp 18 B/P (MAP) 113/65 (81) Pulse Ox 99 O2 Delivery Room Air O2 Flow Rate 15.00 Capillary Refill : Less Than 3 Seconds General Appearance: WD/WN, no apparent distress HEENT: PERRL/EOMI, normal ENT inspection Neck: non-tender, full range of motion, supple Respiratory: chest non-tender, no respiratory distress, no accessory muscle use Cardiovascular: regular rate, rhythm, no JVD Gastrointestinal: soft, tenderness (Slight tenderness from incision from section) Rectal: other (Patient with no palpable polyps masses or ulcerations. Patient with large fecal load in rectal vault consistent with fecal impaction) Back: no CVA tenderness, no vertebral tenderness Extremities: non-tender, normal inspection, no pedal edema Neurologic/Psychiatric: postal supervisor II-XII nml as tested, no motor/sensory deficits, al ert, normal mood/affect, oriented x 3 Skin: normal color, warm/dry Lymphatic: no adenopathy Data Review Labs Laboratory Tests 07/04/20 05:08: White Blood Count 13.1H, Red Blood Count 3.50L, Hemoglobin 8.1#L, Hematocrit 26L , Mean Corpuscular Volume 74L, Mean Corpuscular Hemoglobin 23L, Mean Corpuscular Hemoglobin Concent 31L, Red Cell Distribution Width 16.3H, Platelet Count 132, Mean Platelet Volume 10.5, Immature Granulocyte % (Auto) 1, Neutrophils (%) (Auto) 80H, Lymphocytes (%) (Auto) 11L, Monocytes (%) (Auto) 7, Eosinophils (%) (Auto) 1, Basophils (%) (Auto) 0, Neutrophils # (Auto) 10.4H, Lymphocytes # (Auto) 1.5, Monocytes # (Auto) 1.0, Eosinophils # (Auto) 0.1, Basophils # (Auto) 0.1, Immature Granulocyte # (Auto) 0.1 Assessment/Plan Assessment/Plan Assessment/Plan Status post section Chronic constipation Fecal impaction Patient on rectal exam had extremely large fecal load consistent with fecal impaction. Patient was disimpacted at bedside with nurse freelance copywriter and them assisting. Will also proceed with bowel regimen to evacuate the significant stool load. We will do soapsuds enema and MiraLAX prep. Patient is still on clear liquids at this time. Patient would likely benefit from bowel regimen such as MiraLAX daily and will likely need colonoscopy in near future to evaluate for any other causes of her constipation. BRYNN RIVERA DO July 04, 2020 21:03
[2020-07-05 03:30] VITALS: BP 90/52
[2020-07-05] MEDS: IBUPROFEN 600 MG (MOTRIN) TAB PO SCH ×4 (03:41→20:20)
[2020-07-05] MEDS: ACETAMINOPHEN 500 MG TAB (TYLENOL) PO SCH ×4 (03:45→23:56)
[2020-07-05] MEDS: DOCUSATE SODIUM 100 MG (COLACE) CAP PO SCH ×5 (03:45→21:33)
[2020-07-05] MEDS: CATHETER FLUSH 10 ML SYR IV SCH ×2 (08:49→08:50)
[2020-07-05] MEDS: polyethylene glycoL Bowel Prep(MIRALAX) 238 GM PO SCH ×3 (08:49→09:53)
[2020-07-05] MEDS: D5 LR IV SOLUTION 1,000 ML IV SCH ×3 (08:49→08:52)
--- NOTE | 2020-07-05 08:52 | Postpartum Progress Note ---
Post Op Post-operative Day #2 s/p PLTCS severe constipation/impaction Has had several BM after digital disimpaction and aggressive bowel regimen. s/p soap suds enema, several doses of miralax, but has declined any further miralax. Subjective: Patient is without complaints. Ambulating, voiding after knight removed. Tolerat ing a regular diet without nausea or vomiting. Normal lochia. Pain is well controlled with oral pain medications. Objective: 07/05/20 03:30 Temp 36.3 Pulse 73 Resp 18 B/P (MAP) 90/52 (65) O2 Delivery Room Air 07/05/20 00:00 Intake Total 1700 ml Output Total 500 ml Balance 1200 ml Physical Exam: General - Alert and oriented, no apparent distress Abdomen - Soft, appropriately tender to palpation, non-distended, fundus firm at umbilicus Incision - clean, dry and intact; no erythema or induration, no drainage, bowel sounds present in ruq and luq but not left Extremities - no edema, negative Hi's bilaterally [] Assessment: 1 post-operative day # 2, status post PLTCS. Recovering well, hemodynamically stable 2. severe constipation/impaction 3. Acute blood loss anemia Plan: Routine post-operative care. Encourage breast feeding. Encourage ambulation. VTE prophylaxis: SCDs. Ferrous sulfate supplementation. Plan for discharge today or tomorrow with bowel stimulation; will need GI or Gen surgery consult follow up Vitals - Labs Vital Signs - I&O Vital Signs Date Time Temp Pulse Resp B/P (MAP) Pulse Ox O2 Delivery O2 Flow Rate FiO2 07/05/20 03:30 36.3 73 18 90/52 (65) Room Air 07/04/20 20:40 36.3 82 20 107/62 (77) 99 Room Air 07/04/20 17:00 36.5 72 18 105/64 (78) 99 Room Air 07/04/20 12:30 36.2 89 18 113/66 (82) 100 Room Air I & O 07/05/20 07:00 Intake Total 2780 ml Output Total 500 ml Balance 2280 ml JONG THOMSON DO July 05, 2020 08:52
[2020-07-05] MEDS ORDERED: DCS100C PO (08:59)
[2020-07-05] MEDS ORDERED: magnes (08:59)
[2020-07-05] MEDS ORDERED: POLY238P32 PO (08:59)
[2020-07-05] MEDS ORDERED: ACET-93 PO (08:59)
[2020-07-05] MEDS ORDERED: IBUP-844 PO (08:59)
[2020-07-05 09:00] VITALS: BP 100/57
--- NOTE | 2020-07-05 09:03 | Discharge Inst-Women's Service ---
Discharge Inst-Women's Serv Depart Medication/Instructions New, Converted or Re-Newed RX: RX on Chart Instructions take miralax 1 capful (17 grams) in 8 ounces of water twice daily If no BM in 3 days take 1 bottle of magnesium citrate 84 ounces of water daliy increase total fiber intake (see handout) Final Diagnosis severe constipation/impaction chronic constipation 39 week gestation limited care non reassuring status meconium acute blood loss anemia Problems Reviewed?: Yes Consults/Follow Up Additional Follow Up: Yes ([address] Pradhan in office for incision check and [address] Freire[address] see Dr. Manriquez in 3-4 weeks) Activity Activity: Activity as Tolerated Driving Instructions: No Driving for 1 Week NO SMOKING: NO SMOKING Nothing Inside Vagina: No Douching, No [place], No Tampons Diet Discharge Diet: No Restrictions (high fiber constipation diet) Symptoms to Report to : Bleeding Excessive, Pain Increased, Fever Over 101 Degrees F, Vaginal Bleeding Increase, Cramps in Feet or Legs, Vaginal Discharge Foul For Any Problems or Questions: Contact Your Physician Skin/Wound Care Infection Signs and Symptoms: Increased Redness, Foul Odor of Wound, Increased Drainage, Skin Itchy or Has a Rash, Increased Swelling, Temperature Above 101 F Operative Area Clean and Dry: Keep Incision Clean/Dry Stitches/Edu/Dermabond: Dermabond Bathing Instructions: JONG Arreaga DO July 05, 2020 09:03
[2020-07-05] MEDS ORDERED: MAGNESIUM CITRATE 300 ML BTL PO ONE ×2 (09:30)
[2020-07-05 11:46] VITALS: BP 108/70
[2020-07-05 15:00] VITALS: BP 107/61
--- NOTE | 2020-07-05 15:57 | Diagnostic Imaging Report ---
INDICATION: Constipation. COMPARISON: 07/04/2020 FINDINGS: Two supine radiographic views of the abdomen were obtained and demonstrate persistent marked amount of air and stool scattered throughout the colon. Small bowel loops are nondistended. There is no large collection of free peritoneal air. No unexpected extraosseous calcifications or radiopaque foreign bodies are seen. Osseous structures show no gross acute abnormalities. IMPRESSION: 1. Persistent marked amount of air and stool scattered throughout the colon. Please correlate for constipation. Dictated by: Dictated on workstation # [id number]
[2020-07-05] MEDS ORDERED: MAGNESIUM CITRATE 300 ML BTL PO NR (16:15)
[2020-07-05] MEDS ORDERED: polyethylene glycoL Bowel Prep(MIRALAX) 238 GM PO SCH (17:00)
--- NOTE | 2020-07-05 17:06 | Progress Note - Surgery ---
Subjective Date Seen by a Provider: July 05, 2020 Time Seen by a Provider: 12:19 Subjective/Events-last exam Patient with 1 bowel movement last night. Today fatigued. Patient not feeling urge to go any further. Otherwise doing well denies any nausea vomiting fever sweats chills shortness of breath or chest pain. Objective Exam Vital Signs Date Time Temp Pulse Resp B/P (MAP) Pulse Ox O2 Delivery O2 Flow Rate FiO2 07/05/20 15:00 36.7 76 18 107/61 (76) 98 Room Air 07/05/20 11:46 36.9 69 16 108/70 (83) 100 Room Air 07/05/20 09:00 99 Room Air 07/05/20 09:00 36.3 66 16 100/57 (71) 100 Room Air 07/05/20 03:30 36.3 73 18 90/52 (65) Room Air 07/04/20 20:40 36.3 82 20 107/62 (77) 99 Room Air I & O 07/05/20 06:59 Intake Total 3330 ml Output Total 500 ml Balance 2830 ml Capillary Refill : Less Than 3 Seconds General Appearance: No Apparent Distress, WD/WN HEENT: PERRL/EOMI, Normal ENT Inspection Neck: Non Tender, Supple Respiratory: Chest Non Tender, No Accessory Muscle Use, No Respiratory Distress Cardiovascular: Regular Rate, Rhythm, No JVD Gastrointestinal: soft, tenderness (Slight tenderness from incision from section) Neurologic/Psychiatric: Alert, Oriented x3, No Motor/Sensory Deficits Skin: Normal Color, Warm/Dry Lymphatic: No Adenopathy Assessment/Plan Assessment/Plan Assessment/Plan Status post section Chronic constipation/distention Fecal impaction Patient had 1 bowel movement. I do not feel that she is cleaned out completely. We will get a KUB to reevaluate. We will do a bottle of mag citrate and likely will need further enema and prep to try to evacuate. Keep on clears. Will also get repeat KUB in the morning for follow-up. BRYNN RIVERA DO July 05, 2020 17:06
[2020-07-05 20:18] VITALS: BP 110/59
[2020-07-06 04:46] VITALS: BP 103/61
[2020-07-06] MEDS: IBUPROFEN 600 MG (MOTRIN) TAB PO SCH ×3 (04:46→19:03)
[2020-07-06] MEDS: ACETAMINOPHEN 500 MG TAB (TYLENOL) PO SCH ×2 (06:49→14:00)
--- NOTE | 2020-07-06 08:10 | Postpartum Progress Note ---
Post Op Post-operative Day #3 s/p PLTCS, Had 2 bm yesterday but xray yesterday and today show that she is not evacuated. She refused to do further miralax last night per RN. States she has been ambulating but only in the room. She has showered. Denies nausea, emesis, fever. Subjective: Patient is without complaints. Ambulating, voiding after knight removed. Tolerating a regular diet without nausea or vomiting. Normal lochia. Pain is well controlled with oral pain medications. She is taking rare narcotic (last dose was at 8:55 yesterday am) She is anemic, but I have avoided oral iron due to the constipation. May be a candidate for IV iron infusion. Objective: 07/05/20 07/05/20 07/06/20 20:18 21:00 04:46 Temp 36.4 36.3 Pulse 63 65 Resp 18 18 B/P (MAP) 110/59 (76) 103/61 (75) Pulse Ox 100 100 97 O2 Delivery Room Air Room Air Room Air 07/06/20 00:00 Intake Total 500 ml Balance 500 ml Physical Exam: General - Alert and oriented, no apparent distress Abdomen - Soft, appropriately tender to palpation, non-distended, fundus firm at umbilicus Incision - clean, dry and intact; no erythema or induration, no drainage Extremities - no edema, negative Hi's bilaterally Assessment: 1. post-operative day # 3, status post PLTCS. Recovering well, hemodynamically stable 2. Acute blood loss anemia - stable, but iron held due to chronic constipation 3. chronic constipation/ impaction Plan: Routine post-operative care. Encourage breast feeding. Encourage ambulation. VTE prophylaxis: SCDs. Management of constipation per surgical recommendations Continue CLD until she is advanced by surgery Stable surgically concern that she will not be compliant with follow up if sent home prior to surgical clearance. Vitals - Labs Vital Signs - I&O Vital Signs Date Time Temp Pulse Resp B/P (MAP) Pulse Ox O2 Delivery O2 Flow Rate FiO2 07/06/20 04:46 36.3 65 18 103/61 (75) 97 Room Air 07/05/20 21:00 100 Room Air 07/05/20 20:18 36.4 63 18 110/59 (76) 100 Room Air 07/05/20 15:00 36.7 76 18 107/61 (76) 98 Room Air 07/05/20 11:46 36.9 69 16 108/70 (83) 100 Room Air 07/05/20 09:00 99 Room Air 07/05/20 09:00 36.3 66 16 100/57 (71) 100 Room Air I & O 07/06/20 07:00 Intake Total 1000 ml Balance 1000 ml JONG THOMSON DO July 06, 2020 08:10
--- NOTE | 2020-07-06 08:36 | Diagnostic Imaging Report ---
EXAMINATION: Abdominal radiographs, single supine view. DATE: July 06, 2020. CLINICAL INDICATION: 19-year-old female, chronic distention and constipation. COMPARISON: July 05, 2020. COMMENTS: There are abnormally dilated segments of large bowel in the central abdomen measuring up to 9.2 cm in diameter. There are additional gas-filled segments of large bowel. There is question of abnormal bowel rotation. There is a mild to moderate volume colonic stool. IMPRESSION: 1. Abnormally dilated large bowel up to 9.2 cm in diameter with question of abnormal bowel rotation. There is concern for colonic obstruction. CT abdomen and pelvis with intravenous and/or oral contrast is recommended for further assessment to evaluate for potential cause of large bowel obstruction and to evaluate for potential abnormal rotation of the colon. Dictated by: Dictated on workstation # [id number]
[2020-07-06] MEDS: DOCUSATE SODIUM 100 MG (COLACE) CAP PO SCH ×2 (09:00→21:05)
[2020-07-06 12:30] VITALS: BP 110/66
--- NOTE | 2020-07-06 14:03 | Progress Note - Surgery ---
Subjective Date Seen by a Provider: July 06, 2020 Time Seen by a Provider: 10:09 Subjective/Events-last exam Patient had bowel movements last night. Patient not having any abdominal pain or discomfort at this time. No nausea or vomiting. Patient had KUB still demonstrating large fecal load and colonic distention. Appears to be slightly improved today. No new complaints. Objective Exam Vital Signs Date Time Temp Pulse Resp B/P (MAP) Pulse Ox O2 Delivery O2 Flow Rate FiO2 07/06/20 12:30 36.9 82 18 110/66 (81) 97 Room Air 07/06/20 04:46 36.3 65 18 103/61 (75) 97 Room Air 07/05/20 21:00 100 Room Air 07/05/20 20:18 36.4 63 18 110/59 (76) 100 Room Air 07/05/20 15:00 36.7 76 18 107/61 (76) 98 Room Air I & O 07/06/20 07:00 Intake Total 1000 ml Balance 1000 ml Capillary Refill : Less Than 3 Seconds General Appearance: No Apparent Distress, WD/WN HEENT: PERRL/EOMI, Normal ENT Inspection Neck: Non Tender, Supple Respiratory: Chest Non Tender, No Accessory Muscle Use, No Respiratory Distress Cardiovascular: Regular Rate, Rhythm, No JVD Gastrointestinal: soft, tenderness (Slight tenderness from incision from section) Neurologic/Psychiatric: Alert, Oriented x3, No Motor/Sensory Deficits Skin: Normal Color, Warm/Dry Lymphatic: No Adenopathy Assessment/Plan Assessment/Plan Assessment/Plan Status post section Chronic constipation/distention Fecal impaction Patient to have further enema and mag citrate. Will get KUB in the morning. If no significant improvement by x-ray tomorrow get CT scan with Gastrografin of abdomen and pelvis. Keep on clear liquid diet to help with bowel prep. BRYNN RIVERA DO July 06, 2020 14:03
[2020-07-06] MEDS: MAGNESIUM CITRATE 300 ML BTL PO SCH ×2 (15:15→21:04)
[2020-07-06 19:49] VITALS: BP 116/71
[2020-07-07 01:56] VITALS: BP 109/66
[2020-07-07] MEDS: MAGNESIUM CITRATE 300 ML BTL PO SCH ×3 (01:57→14:43)
[2020-07-07] MEDS: IBUPROFEN 600 MG (MOTRIN) TAB PO SCH ×4 (01:58→14:40)
[2020-07-07] MEDS: DOCUSATE SODIUM 100 MG (COLACE) CAP PO SCH ×2 (07:14→08:04)
[2020-07-07] MEDS ORDERED: POTASSIUM CHLORIDE INJ 30 MEQ in D5 1/2 NS 1000 ML IV SOLUTION 1,000 ML IV SCH (07:15)
[2020-07-07 07:45] LABS: BUN/CREATININE RATIO 13; CALCIUM 8.7 MG/DL (8.5-10.1); CARBON DIOXIDE 24 MMOL/L (21-32); CHLORIDE 104 MMOL/L (98-107); CREATININE SERUM 0.64 MG/DL (0.60-1.30); GFR ESTIMATED > 60; GLUCOSE 63 MG/DL (70-105); MAGNESIUM 2.7 MG/DL (1.6-2.4); POTASSIUM 4.2 MMOL/L (3.6-5.0); SODIUM 139 MMOL/L (135-145)
[2020-07-07 08:26] VITALS: BP 97/54
[2020-07-07] MEDS ORDERED: IRON SUCROSE 200 MG/10 ML (VENOFER) VIAL IV ONE (08:45)
--- NOTE | 2020-07-07 08:45 | Diagnostic Imaging Report ---
EXAMINATION: Abdomen 1 view HISTORY: Abdominal pain constipation COMPARISON: Abdominal radiograph 07/06/2020 FINDINGS: There is a moderate amount of gas and stool throughout the colon. The colon does not appear quite as distended on today's exam compared to 07/06/2020. Nonobstructive bowel gas pattern. No radiopaque foreign body. The lung bases are clear. The osseous structures are intact. IMPRESSION: Moderate stool burden without other acute abnormality in the abdomen. Less prominent appearance of the colon compared to 07/06/2020. Dictated by: Dictated on workstation # [id number]
--- NOTE | 2020-07-07 08:47 | Postpartum Progress Note ---
Post Op Post-operative Day #4 s/p PLTCS continued hospitalization due to fecal impaction/chronic constipation Subjective: Patient is without complaints. She is still on liquid diet. She has had SS enema and mg citrate, but is refusing the enemas at this point. Plan was SS enema and mg citrate until clear and if KUB was not better, then order a CT abdomen and pelvis with gastrograffin. Objective: Intake and Output 07/07/20 00:00 Intake Total 500 ml Balance 500 ml Intake Oral 500 ml # Voids 3 # Bowel Movements 2 07/06/20 07/07/20 07/07/20 21:00 01:56 08:26 Temp 36.8 36.0 Pulse 70 70 Resp 20 16 B/P (MAP) 109/66 (80) 97/54 (68) Pulse Ox 100 100 98 O2 Delivery Room Air Room Air Room Air Physical Exam: General - Alert and oriented, no apparent distress Abdomen - Soft, appropriately tender to palpation, non-distended, fundus firm at umbilicus Incision - clean, dry and intact; no erythema or induration, no drainage Extremities - no edema, negative Hi's bilaterally Assessment: 1. post-operative day # 4, status post PLTCS. Recovering well, hemodynamically stable 2. Acute blood loss anemia - have held oral iron due to the constipation. Will do one infusion of injectofer today 3. chronic constipation - somewhat improved. Continue at home bowel stim and follow up with gen surgery to discuss further management. Will advance diet on recommendations of gen surgery once it is deemed necessary. Plan: Routine post-operative care. Encourage breast feeding. Encourage ambulation. VTE prophylaxis: SCDs. Plan for discharge this afternoon or tomorrow, based on diet, iron and gen surgery recommendations Vitals - Labs Vital Signs - I&O Vital Signs Date Time Temp Pulse Resp B/P (MAP) Pulse Ox O2 Delivery O2 Flow Rate FiO2 07/07/20 08:26 36.0 70 16 97/54 (68) 98 Room Air 07/07/20 01:56 36.8 70 20 109/66 (80) 100 Room Air 07/06/20 21:00 100 Room Air 07/06/20 19:49 36.3 69 20 116/71 (86) 98 Room Air 07/06/20 12:30 36.9 82 18 110/66 (81) 97 Room Air 07/06/20 12:25 100 Room Air Labs Laboratory Tests 07/07/20 07:20: Sodium Level 139, Potassium Level 4.2, Chloride Level 104, Carbon Dioxide Level 24, Anion Gap 11, Blood Urea Nitrogen 8, Creatinine 0.64, Estimat Glomerular Filtration Rate > 60, BUN/Creatinine Ratio 13, Glucose Level 63L, Calcium Level 8.7, Magnesium Level 2.7H JONG THOMSON DO July 07, 2020 08:47
[2020-07-07] MEDS ORDERED: MAGN400T8 PO (08:51)
[2020-07-07] MEDS: D5 1/2 NS 1000 ML IV SOLUTION 1,000 ML IV SCH ×2 (09:36→15:40)
--- NOTE | 2020-07-07 10:24 | Progress Note ---
Subjective Date Seen by a Provider: July 07, 2020 Time Seen by a Provider: 10:00 Subjective/Events-last exam doing well. having loose BM's. tolerating diet. abd soft and only minimally distended. Objective Exam Vital Signs Date Time Temp Pulse Resp B/P (MAP) Pulse Ox O2 Delivery O2 Flow Rate FiO2 07/07/20 08:26 36.0 70 16 97/54 (68) 98 Room Air 07/07/20 08:00 Room Air 07/07/20 01:56 36.8 70 20 109/66 (80) 100 Room Air 07/06/20 21:00 100 Room Air 07/06/20 19:49 36.3 69 20 116/71 (86) 98 Room Air 07/06/20 12:30 36.9 82 18 110/66 (81) 97 Room Air 07/06/20 12:25 100 Room Air Capillary Refill : Less Than 3 Seconds General Appearance: No Apparent Distress HEENT: PERRL/EOMI Neck: Full Range of Motion Respiratory: Chest Non Tender, Lungs Clear Cardiovascular: Regular Rate, Rhythm Gastrointestinal: normal bowel sounds, non tender, soft Extremity: Normal Capillary Refill Neurologic/Psychiatric: Alert, Oriented x3 Skin: Normal Color Lymphatic: No Adenopathy Results Lab Laboratory Tests 07/07/20 07:20: Sodium Level 139, Potassium Level 4.2, Chloride Level 104, Carbon Dioxide Level 24, Anion Gap 11, Blood Urea Nitrogen 8, Creatinine 0.64, Estimat Glomerular Filtration Rate > 60, BUN/Creatinine Ratio 13, Glucose Level 63L, Calcium Level 8.7, Magnesium Level 2.7H Assessment/Plan Assessment/Plan Assess & Plan/Chief Complaint acute on chronic constipation s/p . abd benign and having loose BM's. will repeat axr this afternoon and if same or improved may d/c home. PAMELA PRESSLEY MD July 07, 2020 10:24
--- NOTE | 2020-07-07 12:06 | Diagnostic Imaging Report ---
REASON FOR EXAM: Chronic constipation. COMPARISON: 07/07/2020 at 7:00 AM TECHNIQUE: 2 views of the abdomen FINDINGS: No interval change in mildly distended air-filled loops of large and small bowel throughout the abdomen and pelvis. No collections of free intraperitoneal air. IMPRESSION: Stable appearance of the abdomen and pelvis with continued mildly distended air-filled loops of large and small bowel in the abdomen and pelvis. Dictated by: Dictated on workstation # [id number]
[2020-07-07 16:02] VITALS: BP 106/64
== END 2020-07-07 18:00 | disposition home or self-care (01) | DRG 787 ==
LOC: WSo 16:24 → LDRP 16:27 → WSo 16:28 → LDRP 17:29 → OBSVTOIN 18:56 → LDRP 21:05
PROVIDERS: ADMIT Family Medicine; ATTEND Family Medicine
PROC: 10D00Z1 Extraction of Products of Conception, Low, Open Approach (ICD-10-PCS; principal; 2020-07-03 18:54)
DX: O76 Abnormality in fetal heart rate and rhythm complicating labor and delivery (principal); D62 Acute posthemorrhagic anemia; O77.0 Labor and delivery complicated by meconium in amniotic fluid; Z3A.39 39 weeks gestation of pregnancy; Z37.0 Single live birth; O90.81 Anemia of the puerperium; O99.62 Diseases of the digestive system complicating childbirth; K59.09 Other constipation
CPT/HCPCS: 36415; 74018; 80048; 80053; 83735; 85025; 85027; 86780; 86850; 86900; 86901; 90707; 94664; 99212

== ENCOUNTER 2021-09-11 22:57 | Emergency (ER) | payer SELFPAY ==
[~2021-09-11] VITALS: Ht 160 cm; Wt 70.9 kg
[~2021-09-11 22:57] MED LIST changes: +ACET-93 PO; +DOCU-239 PO; +MGX400T PO; +POLY238P32 PO; +magnes
[2021-09-11 23:18] LABS: BILIRUBIN,URINE NEGATIVE (NEGATIVE); CLARITY,URINE CLOUDY; COLOR,URINE YELLOW; GLUCOSE, URINE (UA) NEGATIVE (NEGATIVE); KETONES,URINE NEGATIVE (NEGATIVE); LEUKOCYTE ESTERASE ,URINE 2+ (NEGATIVE); NITRITE,URINE POSITIVE (NEGATIVE); PROTEIN,URINE TRACE (NEGATIVE)
[2021-09-11 23:29] LABS: BACTERIA,URINE LARGE /HPF; RBC,URINE 0-2 /HPF; SQUAMOUS EPITHELIAL CELL,UR 25-50 /HPF; WBC,URINE 25-50 /HPF; YEAST,URINE FEW /HPF
[2021-09-12] MEDS ORDERED: CEPH500T PO (03:28)
--- NOTE | 2021-09-12 03:29 | ED Abdominal Pain ---
General Chief Complaint: Abdominal/GI Problems Stated Complaint: STOMACH PAIN Nursing Triage Note: C/O INTERMITTANT UPPER ABDOMINAL PAIN X1 DAY Source of Information: Patient Exam Limitations: No Limitations History of Present Illness Date Seen by Provider: Sep 11, 2021 Time Seen by Provider: 23:02 Allergies and Home Medications Allergies Coded Allergies: No Known Drug Allergies (Unverified , 03/16/19) Patient Home Medication List Discontinued Medications Acetaminophen (Acetaminophen) 500 Mg Tablet, 1,000 MG PO Q8HR Discontinued Reason: No Longer Taking Prescribed by: JONG THOMSON on 07/05/20858 Last Action: Discontinued Docusate Sodium (Dok) 100 Mg Capsule, 100 MG PO BID Discontinued Reason: No Longer Taking Prescribed by: JONG THOMSON on 07/05/20858 Last Action: Discontinued Ibuprofen (Ibu) 600 Mg Tablet, 600 MG PO Q6H Discontinued Reason: No Longer Taking Prescribed by: JONG THOMSON on 07/05/20858 Last Action: Discontinued Magnesium Oxide (Magnesium Oxide) 400 Mg Tablet, 400 MG PO BID Discontinued Reason: No Longer Taking Prescribed by: JONG THOMSON on 07/07/20850 Last Action: Discontinued Polyethylene Glycol 3350 ([id number]) 238 Gm Powder, 0 GM PO Q10M Discontinued Reason: No Longer Taking Prescribed by: JONG THOMSON on 07/05/20858 Last Action: Discontinued [magnes] Discontinued Reason: No Longer Taking Prescribed by: JONG THOMSON on 07/05/20858 Last Action: Discontinued Past Meheahp-Gmembv-Zrixps Hx Patient Social History Tobacco Use?: No Substance use?: No Alcohol Use?: No Pt feels they are or have been: No Immunizations Up To Date Tetanus Booster (TDap): Less than 5yrs PED Vaccines UTD: Yes Seasonal Allergies Seasonal Allergies: No Past Medical History Surgery/Hospitalization HX: Surgeries: Yes Section Respiratory: No Cardiac: No Neurological: No Sexually Transmitted Disease: No HIV/AIDS: No Genitourinary: No Gastrointestinal: No Musculoskeletal: No Endocrine: No HEENT: No Loss of Vision: Denies Hearing Impairment: Denies Cancer: No Psychosocial: No Integumentary: No Blood Disorders: No Family Medical History Completed stroke PATERNAL GRANDFATHER Diabetes mellitus 19 FATHER 19 MOTHER MATERNAL GRANDFATHER PATERNAL GRANDFATHER Kidney disease 19 MOTHER Seizure disorder 19 MOTHER Visual disorder 19 FATHER 19 MOTHER No Pertinent Family Hx Physical Exam Vital Signs Vital Signs - First Documented 09/11/21 23:03 Temp 36.5 Pulse 89 Resp 16 B/P (MAP) 112/77 (89) Pulse Ox 99 O2 Delivery Room Air Capillary Refill : Less Than 3 Seconds Height/Weight/BMI Height: '" Weight: lbs. oz. kg; 27.00 BMI Method: Progress/Results/Core Measures Results/Orders Lab Results Laboratory Tests Test 09/11/21 23:11 09/12/21 03:20 Range/Units Urine Color YELLOW Urine Clarity CLOUDY Urine pH 6.0 5-9 Urine Specific [place] >=1.030 1.016-1.022 Urine Protein TRACE H NEGATIVE Urine Glucose (UA) NEGATIVE NEGATIVE Urine Ketones NEGATIVE NEGATIVE Urine Nitrite POSITIVE H NEGATIVE Urine Bilirubin NEGATIVE NEGATIVE Urine Urobilinogen 4.0 < = 1.0 MG/DL Urine Leukocyte Esterase 2+ H NEGATIVE Urine RBC (Auto) 2+ H NEGATIVE Urine RBC 0-2 /HPF Urine WBC 25-50 H /HPF Urine Squamous Epithelial Cells 25-50 H /HPF Urine Crystals NONE /LPF Urine Bacteria LARGE H /HPF Urine Casts NONE /LPF Urine Mucus NEGATIVE /LPF Urine Yeast FEW H /HPF Urine Culture Indicated YES My Orders Orders - PAVAN HOWE MD Ua Culture If Indicated (09/11/21 23:02) Urine Culture (09/11/21 23:11) Wet Prep (09/12/21 02:58) Neisseria Gonorrhea Swab (09/12/21 02:58) Genital Culture (09/12/21 02:58) Chlamydia Trachomatis Swab (09/12/21 02:58) Rocephin 1000mg Im (09/12/21 03:30) Lidocaine 1% Inj 20 Ml (Xylocaine 1% Inj (09/12/21 03:30) Azithromycin Tablet (Zithromax Tablet) (09/12/21 03:30) Vital Signs/I&O 09/11/21 23:03 Temp 36.5 Pulse 89 Resp 16 B/P (MAP) 112/77 (89) Pulse Ox 99 O2 Delivery Room Air Blood Pressure Mean: 89 Departure Impression Primary Impression: Urinary tract infection Qualified Codes: N39.0 - Urinary tract infection, site not specified Additional Impressions: Positive test Generalized abdominal pain Disposition: 01 HOME, SELF-CARE Condition: Stable Departure-Patient Inst. Decision time for Depature: 03:26 Referrals: NO,LOCAL PHYSICIAN (PCP/Family) Primary Care Physician Patient Instructions: Urinary Tract Infection, Adult ED Add. Discharge Instructions: Contact Dr. Freire's office later today to schedule an appointment. Reviewed vaginal culture results at your appointment. Refrain from sexual activity or anything in the vagina until your follow-up appointment and clearance by Dr. Freire. Drink plenty of clear liquids to stay well-hydrated. Complete your antibiotics as prescribed. You may take Tylenol (acetaminophen) up to 1000 mg every 6 hours as needed for discomfort. Return to the emergency room if you have worsening symptoms. All discharge instructions reviewed with patient and/or family. Voiced understanding. Scripts Cephalexin (Cephalexin) 500 Mg Tablet 500 MG PO TID, #20 TAB Prov: PAVAN HOWE MD 09/12/21 PAVAN HOWE MD Sep 12, 2021 03:29
[2021-09-12] MEDS ORDERED: LIDOCAINE 1% INJ 20 ML VIAL INJ ONE (03:30)
[2021-09-12] MEDS ORDERED: cefTRIAXone 1,000 MG VIAL IM ONE (03:30)
[2021-09-12] MEDS ORDERED: AZITHROMYCIN 250 MG TAB (ZITHROMAX) PO ONE (03:30)
[2021-09-12 03:35] VITALS: BP 95/64
== END 2021-09-12 03:36 | disposition home or self-care (01) ==
LOC: EDUNIT# 22:57 → ER 22:59
DX: O23.40 Unspecified infection of urinary tract in pregnancy, unspecified trimester (principal); N39.0 Urinary tract infection, site not specified; Z3A.00 Weeks of gestation of pregnancy not specified
CPT/HCPCS: 36415; 81000; 84703; 87070; 87077; 87088; 87205; 87210; 87491; 87591; 99284

== ENCOUNTER 2022-04-14 01:09 | Emergency (ER) | payer SELFPAY ==
[~2022-04-14] VITALS: Ht 160 cm; Wt 70.9 kg
[~2022-04-14 01:09] MED LIST changes: +CEPH500T PO
[2022-04-14 01:35] LABS: BILIRUBIN,URINE NEGATIVE (NEGATIVE); CLARITY,URINE CLEAR; COLOR,URINE YELLOW; GLUCOSE, URINE (UA) NEGATIVE (NEGATIVE); KETONES,URINE NEGATIVE (NEGATIVE); LEUKOCYTE ESTERASE ,URINE TRACE (NEGATIVE); NITRITE,URINE NEGATIVE (NEGATIVE); PROTEIN,URINE NEGATIVE (NEGATIVE)
--- NOTE | 2022-04-14 01:37 | ED General ---
General Chief Complaint: Cough/Cold/Flu Symptoms Stated Complaint: FEVER,SOB Nursing Triage Note: SOA X1 WEEK, FEVER TONIGHT, 39 WEEKS , SCHEDULED FOR 04/16/22 C/O ABDOMINAL CRAMPING AT NIGHT X1 WEEK. Source of Information: Patient (VERY POOR/LIMITED HISTORIAN) History of Present Illness Date Seen by Provider: Apr 14, 2022 Time Seen by Provider: 01:19 Initial Comments PT ARRIVES VIA POV FROM HOME WITH MALE PT IS 39+ WEEKS AND IS DUE TO HAVE A SCHEDULED THIS WEEK 04/16/22--SEES DR. RICH FOR OB PT HAS BEEN HAVING GENERALIZED ABDOMINAL PAIN AND CRAMPING FOR THE LAST WEEK SHE HAS HAD SOME BLEEDING, BUT CAN'T STATE WHEN OR HOW MUCH BLEEDING SHE HAS BEEN HAVING, OR IF SHE IS HAVING BLEEDING NOW. SHE LATER STATES SHE IS NOT HAVING BLEEDING NOW, AND BLEEDING PRIOR WAS AFTER INTERCOURSE. SHE DOES C/O PAIN ON URINATION ADDITIONALLY, SHE STATES SHE HAS BEEN SHORT OF BREATH FOR THE LAST WEEK SHE HAS ALSO HAD A COUGH ALL WEEK SHE HAS HAD SUBJECTIVE FEVER TODAY--SHE HAS NOT CHECKED TEMP OR TAKEN ANYTHING FOR PAIN OR FEVER SHE HAS NOT ATTEMPTED TO SEEK CARE UNTIL NOW PT IS AB 0 DELIVERED 03/16/19 VIA DELIVERED 07/03/2020 VIA FOR DISTRESS SHE HAD VERY LATE CARE FOR BOTH--WITH ONLY 1 OR 2 VISITS PRIOR TO BOTH OF THOSE DELIVERIES. BLOOD TYPE IS B+ DENIES ANY CHRONIC MEDICAL PROBLEMS SHE HAS NOT HAD COVID OR FLU VACCINES NO KNOWN SICK CONTACTS. PCP; DR. RICH Allergies and Home Medications Allergies Coded Allergies: No Known Drug Allergies (Unverified , 03/16/19) Patient Home Medication List Home Medication List Reviewed: Yes Cephalexin (Cephalexin) 500 Mg Tablet, 500 MG PO TID Prescribed by: PAVAN CHONG on 09/12/21 0328 Review of Systems Review of Systems Constitutional: see HPI, fever EENTM: no symptoms reported Respiratory: see HPI, cough, short of breath Cardiovascular: no symptoms reported Gastrointestinal: see HPI Genitourinary: see HPI Expected Date of Delivery: Apr 16, 2022 Musculoskeletal: no symptoms reported Skin: no symptoms reported Psychiatric/Neurological: No Symptoms Reported Hematologic/Lymphatic: No Symptoms Reported Immunological/Allergic: no symptoms reported Past Eubrels-Rwdyub-Umekiv Hx Patient Social History Tobacco Use?: No Substance use?: No Alcohol Use?: No Pt feels they are or have been: No Immunizations Up To Date Tetanus Booster (TDap): Less than 5yrs PED Vaccines UTD: Yes First/Initial COVID19 Vaccinat: NA Seasonal Allergies Seasonal Allergies: No Past Medical History Surgery/Hospitalization HX: , CONSTIPATION Surgeries: Yes Section Respiratory: No Cardiac: No Neurological: No Expected Date of Delivery: Apr 16, 2022 Sexually Transmitted Disease: No HIV/AIDS: No Genitourinary: No Gastrointestinal: Yes Chronic Constipation Musculoskeletal: No Endocrine: No HEENT: No Loss of Vision: Denies Hearing Impairment: Denies Cancer: No Psychosocial: No Integumentary: No Blood Disorders: No Family Medical History Completed stroke PATERNAL GRANDFATHER Diabetes mellitus 19 FATHER 19 MOTHER MATERNAL GRANDFATHER PATERNAL GRANDFATHER Kidney disease 19 MOTHER Seizure disorder 19 MOTHER Visual disorder 19 FATHER 19 MOTHER No Pertinent Family Hx DELIVERED 03/16/19 VIA DELIVERED 07/03/2020 VIA FOR DISTRESS SHE HAD VERY LATE CARE FOR BOTH--WITH ONLY 1 OR 2 VISITS PRIOR TO BOTH OF THOSE DELIVERIES. BLOOD TYPE IS B+ Physical Exam Vital Signs Vital Signs - First Documented 04/14/22 01:17 Temp 37.4 Pulse 116 Resp 16 B/P (MAP) 114/75 (88) Pulse Ox 100 O2 Delivery Room Air Capillary Refill : Less Than 3 Seconds Height, Weight, BMI Height: '" Weight: lbs. oz. kg; 27.00 BMI Method: General Appearance: No Apparent Distress, WD/WN, Other (DOES NOT APPEAR ILL OR TO BE IN ANY DISCOMFORT OR DISTRESS. WALKS UPRIGHT AND MOVES WITHOUT DIFFICULTY) HEENT: No Pale Conjunctivae (L), No Pale Conjunctivae (R), No Scleral Icterus (L), No Scleral Icterus (R) Neck: Normal Inspection Respiratory: Normal Breath Sounds, No Accessory Muscle Use, No Respiratory Distress Cardiovascular: No Edema, No JVD, No Murmur, Normal Peripheral Pulses, Tachycardia Gastrointestinal: Other (GRAVID UTERUS, ACTIVE MOVEMENT, MILD DIFFUSE TENDERNESS) Back: No CVA Tenderness Extremity: Normal Inspection, No Pedal Edema Neurologic/Psychiatric: Alert, Oriented x3, No Motor/Sensory Deficits, location man II- XII Norm as Tested Skin: Normal Color (DARK SKINNED); No Rash Progress/Results/Core Measures Suspected Sepsis SIRS Temperature: Pulse: 116 Respiratory Rate: 16 Blood Pressure 114 /75 Mean: 88 Results/Orders Lab Results Laboratory Tests Test 04/14/22 01:24 04/14/22 01:30 Range/Units Urine Color YELLOW Urine Clarity CLEAR Urine pH 7.0 5-9 Urine Specific [place] <=1.005 1.016-1.022 Urine Protein NEGATIVE NEGATIVE Urine Glucose (UA) NEGATIVE NEGATIVE Urine Ketones NEGATIVE NEGATIVE Urine Nitrite NEGATIVE NEGATIVE Urine Bilirubin NEGATIVE NEGATIVE Urine Urobilinogen 1.0 < = 1.0 MG/DL Urine Leukocyte Esterase TRACE H NEGATIVE Urine RBC (Auto) TRACE-I H NEGATIVE Urine RBC 0-2 /HPF Urine WBC 2-5 /HPF Urine Squamous Epithelial Cells 5-10 /HPF Urine Crystals NONE /LPF Urine Bacteria FEW H /HPF Urine Casts NONE /LPF Urine Mucus NEGATIVE /LPF Urine Culture Indicated NO Influenza Type A (RT-PCR) Detected H Not Detecte Influenza Type B (RT-PCR) Not Detected Not Detecte SARS-CoV-2 RNA (RT-PCR) Not Detected Not Detecte My Orders Orders - LACY SINGH DO Covid 19 Inhouse Test (04/14/22 01:17) Influenza A And B By Pcr (04/14/22 01:17) Isolation Central Supply Req (04/14/22 01:17) Ua Culture If Indicated (04/14/22 01:17) Acetaminophen Tablet (Tylenol Tablet) (04/14/22 01:45) Azithromycin Tablet (Zithromax Tablet) (04/14/22 02:15) Rx-Oseltamivir Caps (Rx-Tamiflu Caps) (04/14/22 02:03) Medications Given in ED Current Medications Medications Dose Ordered Sig/Em Route Start Time Stop Time Status Last Admin Dose Admin Acetaminophen 1,000 mg ONCE ONCE PO 04/14/22 01:45 04/14/22 01:47 DC 04/14/22 01:44 1,000 MG Azithromycin 1,000 mg ONCE ONCE PO 04/14/22 02:15 04/14/22 02:16 DC 04/14/22 02:37 1,000 MG Vital Signs/I&O 04/14/22 04/14/22 04/14/22 01:17 01:44 02:37 Temp 37.4 37.4 37.2 Pulse 116 109 Resp 16 18 B/P (MAP) 114/75 (88) 116/77 Pulse Ox 100 100 O2 Delivery Room Air Room Air Capillary Refill : Less Than 3 Seconds Blood Pressure Mean: 88 Progress Note : Progress Note PPE WORN COVID AND FLU TESTING DONE TEMP IS 37.4=99.4 ON ARRIVAL GIVEN TYLENOL FOR FEVER OB STAFF CONTACTED FOR MONITORING. NON-STRESS TEST DONE NORMAL BEAT TO BEAT VARIABILITY, NO DECELERATIONS, NO CONTRACTIONS, FHR 150-160. NORMAL MONITOR STRIP. OB RN BRINGS PT'S CLINIC OB RECORDS AND PROVIDES THE FOLLOWING: PT HAD FIRST OB VISIT 01/07/22 --TESTED + FOR CHLAMYDIA SECOND VISIT 01/28/22 AND THIRD OB VISIT 03/06/22--SHE WAS DX WITH CHLAMYDIA AT THAT TIME, SHE DID NOT TAKE THE PRESCRIBED MEDICATION, AND DID NOT FOLLOW UP AT ANY TIME. PARTNER DID NOT GET TREATED/SEEN REVIEWED PRIOR HOSPITAL RECORDS INCLUDING ADMITS FOR DELIVERY, H&P'S, PROCEDURES/DELIVERIES, AND DISCHARGE SUMMARIES. DISCUSSED TEST RESULTS WITH PT AND MALE IN ROOM DISCUSSED TREATMENT, MEDICATIONS, ABSTINENCE FROM INTERCOURSE UNTIL BOTH SHE AND PARTNER HAVE BEEN TREATED, RECHECKED AND CLEARED STRESSED THE IMPORTANCE OF TREATMENT OF CHLAMYDIA, ESPECIALLY SINCE SHE IS SO CLOSE TO DELIVERY SHE WAS GIVEN ZITHROMAX 1 GRAM PO HERE IN ER ALSO DISCUSSED + INFLUENZA A TEST, NEED FOR QUARANTINE, SYMPTOMATIC TREATMENT SHE WAS SENT HOME WITH A FULL COURSE OF TAMIFLU WELL ALSO STRESSED THE IMPORTANCE OF TAKING MIRALAX EVERY DAY AND INCREASING HER FLUID INTAKE, HER CHRONIC CONSTIPATION COULD BE CONTRIBUTING TO HER ABDOMINAL DISCOMFORT WELL, ESPECIALLY SINCE SHE IS SO CLOSE TO DELIVERY AND IT WILL MAKE DELIVERY AND RECOVERY EASIER IF SHE MOVES HER BOWELS. AFTER HER LAST DELIVERY, SHE PASSED 10 LBS OF FECES. SHE HAS REPORTED THAT SHE DOES NOT WANT TO HAVE A BM BECAUSE IT IS PAINFUL, AND TRIES NOT TO GO BECAUSE IT HURTS. SHE HAS GONE LONG 3 MONTHS WITHOUT A BOWEL MOVEMENT. Departure Communication (Admissions) 211--SPOKE WITH DR. RICH, SHE IS AGREEABLE TO PLAN, AND WILL SEE PT IN FOLLOW UP. DR. CEDILLO WILL BE DOING . Impression Primary Impression: Influenza A Additional Impressions: Chlamydia infection affecting in third trimester, antepartum 39 weeks gestation of Non-compliance Chronic constipation Disposition: HOME, SELF-CARE Condition: Stable Departure-Patient Inst. Decision time for Depature: 02:22 Referrals: SIDNEY CEDILLO HOLLY R MD NO,LOCAL PHYSICIAN (PCP) Primary Care Physician Patient Instructions: Sexually Transmitted Diseases ED, Flu, Adult ED, Chlamydia (DC), How to Wash Your Hands Properly Add. Discharge Instructions: YOU HAVE INFLUENZA A AND YOU ARE CONTAGIOUS YOU NEED TO QUARANTINE FOR THE NEXT 7 DAYS--NO ONE ENTERS OR LEAVES YOUR HOUSE. YOU MAY GO TO DOCTOR APPOINTMENT, YOU MUST WEAR A MASK AT ALL TIMES IF YOU LEAVE HAVE TO LEAVE YOUR HOUSE YOU WERE GIVEN TAMIFLU, A MEDICATION TO TREAT INFLUENZA. YOU TAKE THE MEDICATION TWICE A DAY FOR 5 DAYS. YOU ALSO HAVE CHLAMYDIA, A SEXUALLY TRANSMITTED DISEASE YOU WERE GIVEN MEDICATION TODAY FOR THAT INFECTION. ANY SEXUAL PARTNERS YOU HAVE HAD WILL ALSO NEED TO BE TREATED. DO NOT HAVE SEX OF ANY KIND UNTIL YOU AND YOUR PARTNER HAVE BOTH BEEN RECHECKED AFTER YOU ARE TREATED AND ARE BOTH CLEARED BY A DOCTOR. IT IS IMPORTANT THAT YOU FOLLOW UP WITH DR. RICH OR DR. CEDILLO THIS WEEK FOR AR EGNANCY CHECK. THIS INFECTION CAN BE HARMFUL TO YOU AND YOUR BABY IF YOU DO NOT COMPLETE TREATMENT YOU NEED TO INCREASE YOUR FLUID INTAKE, ESPECIALLY WATER. YOU NEED TO TAKE MIRALAX EVERY DAY FOR CONSTIPATION--YOU MAY TAKE IT 2-3 TIMES A DAY IF YOU NEED TO, IN ORDER TO HAVE A BOWEL MOVEMENT. YOU MAY TAKE ONLY TYLENOL FOR PAIN OR FOR FEVER YOU NEED TO GET A THERMOMETER AND CHECK YOUR TEMPERATURE IF YOU FEEL LIKE YOU HAVE A FEVER OR ARE HAVING CHILLS. RETURN TO ER IF ANY OF YOUR SYMPTOMS WORSEN All discharge instructions reviewed with patient and/or family. Voiced understanding. LACY SINGH DO Apr 14, 2022 01:37
[2022-04-14 01:44] LABS: BACTERIA,URINE FEW /HPF; RBC,URINE 0-2 /HPF
[2022-04-14] MEDS ORDERED: ACETAMINOPHEN 500 MG TAB (TYLENOL) PO ONE (01:45)
[2022-04-14] MEDS ORDERED: RX-OSELTAMIVIR 75 MG (TAMIFLU) BOX OF 10 PO STA (02:03)
[2022-04-14] MEDS ORDERED: AZITHROMYCIN 250 MG TAB (ZITHROMAX) PO ONE (02:15)
[2022-04-14 02:37] VITALS: BP 116/77
== END 2022-04-14 02:38 | disposition home or self-care (01) ==
LOC: EDUNIT# 01:09 → ER 01:12
DX: O99.513 Diseases of the respiratory system complicating pregnancy, third trimester (principal); J10.1 Influenza due to other identified influenza virus with other respiratory manifestations; O98.813 Other maternal infectious and parasitic diseases complicating pregnancy, third trimester; O99.613 Diseases of the digestive system complicating pregnancy, third trimester; K59.09 Other constipation; O09.623 Supervision of young multigravida, third trimester; Z3A.39 39 weeks gestation of pregnancy; Z91.14 Patient's other noncompliance with medication regimen; Z20.822 Contact with and (suspected) exposure to COVID-19; Z28.310 Unvaccinated for COVID-19
CPT/HCPCS: 81000; 87636; 99283

== ENCOUNTER 2022-04-16 05:30 | Outpatient (CLI) | payer SELFPAY ==
[~2022-04-16] VITALS: Ht 157.5 cm; Wt 82.2 kg
[2022-04-16] MEDS ORDERED: PREN-102 PO (12:33)
== END 2022-04-16 12:46 | disposition home or self-care (01) ==
LOC: PREOP 05:30
PROVIDERS: ATTEND Obstetrics & Gynecology
DX: Z01.818 Encounter for other preprocedural examination (principal)

== ENCOUNTER 2022-04-21 17:36 | Inpatient (IN) | payer SELFPAY ==
[~2022-04-21] VITALS: Ht 154.2 cm; Wt 85.1 kg
[~2022-04-21 17:36] MED LIST changes: +PREN-102 PO
--- OUTSIDE RECORDS SUMMARY | 2022-04-21 17:39 | XMS REPORT ---
Author Author [facility] Address Unknown Phone Unavailable Care Team Providers Care Radio Operator Ground Name Role Phone JAMELMAGGIE GARNETT Unavailable PROBLEMS Type Condition ICD9-CM Code [id number] Code Onset Dates Condition S tatus W/U Status Risk SNOMED Code Notes Problem Constipation, unspecified K59.00 confirmed [id number] ALLERGIES No Known Allergies ENCOUNTERS from 1998 to 2022-02-23 Encounter Location Date Provider Diagnosis [facility] [address] [facility] [id number] [address] Mar, MAGGIE RICH care in sec ond trimester Z34.92 and 24 weeks gestation of Z3A.24 IMMUNIZATIONS Vaccine Route Administration Date Status 2nd Dose MODERNA COVID-19, mRNA, 0.5mL IM Intramuscular April Administered 1st Dose HRSA MODERNA, COVID-19, 0.5mL IM Intramuscular August 27, 2020 Administered PRIVATE FLULAVAL QUAD 0.5ML (6 MO AND UP) 2019 IM Intramuscular Nov 17, 2019 Administered VFC FLULAVAL QUAD 0.5ML (6 MO AND UP) 2018 IM Intramuscular Mar 08, 2019 Administered PRIVATE TDAP (BOOSTRIX) IM Intramuscular Mar 08, 2019 Adminis tered SOCIAL HISTORY Sex Assigned At : Social History Observation Description Sex Assigned At Unknown Alcohol Screen (Audit-C) Question Answer Notes Did you have a drink containing alcohol in the past year? No Points 0 Interpretation Negative Sexual History Question Answer Notes Had sex in the past 12 months (vaginal, oral, or anal)? Yes Last menstrual period 09/29/2021 Have you ever had a Sexually transmitted disease? No with Men only Use protection? No PHQ2 Question Answer Notes In the last 2 weeks, how often have you had little interest or pleasure in doing things? Not at all In the last 2 weeks, how often have you been feeling down, depressed, or hopeless? Not at all Total PHQ2 Score 0 Tobacco use other than smoking: Question Answer Notes Are you an other tobacco user? No REASON FOR REFERRAL No Information VITAL SIGNS Height 60 in Mar, Temperature 98.5 degrees Fahrenheit Mar, Heart Rate 98 bpm Mar, Respiratory Rate 18 bpm Mar, Oximetry 97 % Mar, Blood pressure systolic 108 mmHg Mar, Blood pressure diastolic 60 mmHg Mar, MEDICATIONS Medication SIG (Take, Route, Frequency, Duration) Notes Start Da te End Date Status Senna S 8.6-50 MG 1 tablet Orally Twice a day for 30 days Active MiraLax - 4 capfuls in 32 oz gatorade, repeat in 2 hours, then 17 gm in 8 oz water daily Orally Once a day for 30 days Sep, Active PROCEDURES No Information RESULTS No Results REASON FOR VISIT OB f/u MEDICAL (GENERAL) HISTORY Type Description Date Surgical History [facility] Hospitalization History Vaginal 03/2019 Goals Section No Information Health Concerns No Information MEDICAL EQUIPMENT No Information MENTAL STATUS No Information FUNCTIONAL STATUS No Information ASSESSMENTS Encounter Date Diagnosis Assessment Notes Treatment Notes Treatm ent Clinical Notes Mar, care in second trimester (ICD-1 0 - Z34.92) Mar, 24 weeks gestation of (ICD-10 - Z3A.24 ) Weeks 22 to 26 of Your : Care Instructions material was published, Learning About When to Call Your Doctor During (After 20 Weeks) material was published Mar, Other This note was s cribed by Jack Ferrera under the direct supervision of Dr. Mouna FORBES who directed the entire visit and performed the exam. PLAN OF TREATMENT Medication Medication Name Sig Start Date Stop Date Senna S 8.6-50 MG 1 tablet Orally Twice a day for 30 days MiraLax - 4 capfuls in 32 oz gatorade, repeat in 2 hours, then 17 gm in 8 oz water daily Orally Once a day for 30 days Sep, Treatment Notes Assessment Notes Clinical Notes 24 weeks gestation of Weeks 22 to 26 of Your : Care Instructions material was published, Learning About When to Call Your Doctor During (After 20 Weeks) material was published Next Appt Details 2 weeks Reason: Provider Name:MAGGIE RICH, 2022-03-06 02 :20:00 PM, [address] , [place], [address], Insurance Providers Payer Name Payer Address Payer Phone Insured Name Patient Relati onship to Insured Coverage Start Date Coverage End Date Subscriber Number Group Nu er [place] OF [place] [address] [facility] [address] Bibi Tony Self - patient is the insured [id number] [employer]ank Y
--- OUTSIDE RECORDS SUMMARY | 2022-04-21 17:39 | XMS REPORT ---
Author Author [facility] Address Unknown Phone Unavailable Care Team Providers Care Transfer Worker Name Role Phone JAMELMAGGIE GARNETT Unavailable PROBLEMS Type Condition ICD9-CM Code XUD55-NV Code Onset Dates Condition S tatus W/U Status Risk SNOMED Code Notes Problem Constipation, unspecified K59.00 confirmed [id number] ALLERGIES No Known Allergies ENCOUNTERS from 1998 to 2022-03-11 Encounter Location Date Provider Diagnosis [facility] [address] [facility] [id number] [address] Apr, MAGGIE RICH care in sec ond trimester Z34.92 ; 26 weeks gestation of Z3A.26 ; Constipation, unspecified K59.00 and BMI 32.0- 32.9,adult Z68.32 IMMUNIZATIONS Vaccine Route Administration Date Status 2nd [...] No Information VITAL SIGNS Height 60 in Apr, Weight 166 lbs Apr, Weight-kg 75.3 kg Apr, Temperature 97.9 degrees Fahrenheit Apr, Heart Rate 114 bpm Apr, Respiratory Rate 18 bpm Apr, Oximetry 98 % Apr, BMI 32.42 kg/m2 Apr, Blood pressure systolic 102 mmHg Apr, Blood pressure diastolic 64 mmHg Apr, MEDICATIONS Medication SIG (Take, Route, Frequency, Duration) [...] RESULTS No Results REASON FOR VISIT OB 2wk f/u-jose alexandre, GTT- jose alexander MEDICAL (GENERAL) HISTORY Type Description Date Surgical History [facility] Hospitalization History Vaginal 03/2019 Goals Section No Information Health Concerns No Information MEDICAL EQUIPMENT No Information MENTAL STATUS No Information FUNCTIONAL STATUS No Information ASSESSMENTS Encounter Date Diagnosis Assessment Notes Treatment Notes Treatm ent Clinical Notes Apr, care in second trimester (ICD-1 0 - Z34.92) Apr, 26 weeks gestation of (ICD-10 - Z3A.26 ) Weeks 22 to 26 of Your : Care Instructions material was published Apr, Constipation, unspecified (ICD-10 - K59. 00) Apr, BMI 32.0-32.9,adult (ICD-10 - Z68.32) Apr, Other This note was s cribed by [...] Sep, Treatment Notes Assessment Notes Clinical Notes 26 weeks gestation of Weeks 22 to 26 of Your : Care Instructions material was published Next Appt Details 2 Weeks Reason: Insurance Providers Payer Name Payer Address Payer Phone Insured Name Patient Relati onship to Insured Coverage Start Date Coverage End Date Subscriber Number Group Nu mber MEDICAID OF [place] [address] [facility] [id number] Bibi Tony T Self - patient is the insured [id number] PRISCILLA RUIZ Y
[2022-04-21] MEDS ORDERED: polyethylene glycoL Bowel Prep(MIRALAX) 238 GM PO SCH (18:30)
[2022-04-21] MEDS ORDERED: LACTATED RINGERS 1,000 ML IV SCH (18:30)
[2022-04-21 19:06] VITALS: BP 113/56
[2022-04-21 19:10] LABS: BASOPHILS % (AUTO) 0 % (0-10); EOSINOPHILS % (AUTO) 0 % (0-10); HEMATOCRIT 31 % (35-52); HEMOGLOBIN 9.9 g/dL (11.5-16.0); LYMPHOCYTES # (AUTO) 1.8 10^3/uL (1.0-4.0); LYMPHOCYTES % (AUTO) 23 % (12-44); MEAN CORPUSCULAR HEMOGLOBIN 23 pg (25-34); MEAN CORPUSCULAR HGB CONC 32 g/dL (32-36); MEAN CORPUSCULAR VOLUME 71 fL (80-99); MONOCYTES # (AUTO) 0.4 10^3/uL (0.0-1.0); MONOCYTES % (AUTO) 5 % (0-12); NEUTROPHILS # (AUTO) 5.4 10^3/uL (1.8-7.8); NEUTROPHILS % (AUTO) 70 % (42-75); PLATELET COUNT 145 10^3/uL (130-400); WHITE BLOOD COUNT 7.7 10^3/uL (4.3-11.0)
[2022-04-21 19:11] VITALS: BP 113/56
[2022-04-21 19:30] VITALS: BP 105/57
[2022-04-21 19:53] LABS: ALBUMIN 2.9 GM/DL (3.2-4.5); BILIRUBIN,TOTAL 0.6 MG/DL (0.1-1.0); CALCIUM 8.3 MG/DL (8.5-10.1); CREATININE SERUM 0.6 MG/DL (0.60-1.30); POTASSIUM 2.9 MMOL/L (3.6-5.0); TOTAL PROTEIN 6.7 GM/DL (6.4-8.2)
[2022-04-21] MEDS ORDERED: ONDANSETRON 4 MG/2 ML (SDV) Z0FRAN IVP ONE (23:15)
[2022-04-21] MEDS ORDERED: ONDANSETRON 4 MG/2 ML (SDV) Z0FRAN ONE (23:18)
[2022-04-21 23:55] VITALS: BP 111/62
[2022-04-22] VITALS (10 sets, daily range): BP systolic 71–118; BP diastolic 43–84
[2022-04-22] MEDS ORDERED: CATHETER FLUSH 10 ML SYR IV PRN (02:00)
[2022-04-22] MEDS ORDERED: CITRIC ACID/SOB CIT (BICITRA) 30 ML UDC PO ONE (06:00)
[2022-04-22] MEDS ORDERED: FAMOTIDINE 20MG/2ML IV (PEPCID) IV ONE (06:00)
[2022-04-22] MEDS ORDERED: METOCLOPRAMIDE INJ 10 MG/2 ML (REGLAN) IV ONE (06:00)
[2022-04-22] MEDS: LACTATED RINGERS 1,000 ML IV PRN ×2 (06:43→07:19)
[2022-04-22] MEDS ORDERED: OXYTOCIN PRE-MIX DRIP 1,000 ML IV ONE (06:59)
[2022-04-22] MEDS ORDERED: fentaNYL INJ 100 MCG/2 ML AMP ONE (06:59)
[2022-04-22] MEDS ORDERED: ceFAZolin INJECTION 2,000 MG in NS (IVPB) 50 ML IV ONE (07:00)
[2022-04-22] MEDS ORDERED: ONDANSETRON 4 MG/2 ML (SDV) Z0FRAN IVP PRN ×2 (07:15→07:30)
[2022-04-22] MEDS ORDERED: HYDROmorphone 2 MG/ML VIAL (DILAUDID) IV ONE (07:15)
--- NOTE | 2022-04-22 07:19 | History & Physical-OB ---
OB - Chief Complaint & HPI Date/Time Date of Admission: Date of Admission: Apr 21, 2022 at 17:36 Date seen by a Provider: Apr 22, 2022 Time Seen by a Provider: 07:12 Chief Complaint/History OB-Reason for Admission/Chief: Section Hx : 3 Hx Para: 2 Expected Date of Delivery: Apr 28, 2022 Gestational Age in Weeks: 39 Gestational Age in Days: 1 Indication for : desires repeat Admission Nurse Assessment Rev: Yes Allergies and Home Medications Allergies Coded Allergies: No Known Drug Allergies (Unverified , 04/16/22) Patient Home Medication List Home Medication List Reviewed: Yes Vits #93/Iron Fum/FA ( Formula Tablet) 9 Mg Iron-267 Mcg Tablet, 1 EACH PO DAILY, (Reported) Entered as Reported by: CLOTILDE BRUNNER on 04/16/22 1233 Discontinued Medications Cephalexin (Cephalexin) 500 Mg Tablet, 500 MG PO TID Discontinued Reason: No Longer Taking Prescribed by: PAVAN CHONG on 09/12/21 0328 OB - History Hx of Present Care: Yes Ultrasounds: Normal mid trimester US Obstetrical Complications: None Medical Complications: None Patient Past Medical History Chronic Constipation, Martínez Colon Social History/Family History 2nd Hand Smoke Exposure: No Immunizations Influenza Vaccine Up-to-Date: No; Not Current First/Initial COVID19 Vaccine: NA Hepatitis A: No Hepatitis B: No Tetanus Booster (TDap): Less than 5yrs OB - Admission Exam Physical Exam Vitals: Vital Signs 04/21/22 23:55 Temp 36.5 Pulse 82 Resp 16 B/P (MAP) 111/62 (78) Pulse Ox 99 O2 Delivery Room Air HEENT: NCAT Heart: Rhythm Normal Lungs: Clear Abdomen: Gravid Extremities: Normal Reflexes: Normal Heart Rate: 130's Accelerations: Accelerations Present Decelerations: No Decelerations Short Term Variability: Present Box Spinner Variability: Average (6-25) Contractions on Admission: >10 Minutes Apart Intensity: Mild Labs Laboratory Tests Test 04/21/22 18:45 Range/Units White Blood Count 7.7 4.3-11.0 10^3/uL Red Blood Count 4.31 3.80-5.11 10^6/uL Hemoglobin 9.9 L 11.5-16.0 g/dL Hematocrit 31 L 35-52 % Mean Corpuscular Volume 71 L 80-99 fL Mean Corpuscular Hemoglobin 23 L 25-34 pg Mean Corpuscular Hemoglobin Concent 32 32-36 g/dL Red Cell Distribution Width 15.1 H 10.0-14.5 % Platelet Count 145 130-400 10^3/uL Mean Platelet Volume 10.0 9.0-12.2 fL Immature Granulocyte % (Auto) 1 % Neutrophils (%) (Auto) 70 42-75 % Lymphocytes (%) (Auto) 23 12-44 % Monocytes (%) (Auto) 5 0-12 % Eosinophils (%) (Auto) 0 0-10 % Basophils (%) (Auto) 0 0-10 % Neutrophils # (Auto) 5.4 1.8-7.8 10^3/uL Lymphocytes # (Auto) 1.8 1.0-4.0 10^3/uL Monocytes # (Auto) 0.4 0.0-1.0 10^3/uL Eosinophils # (Auto) 0.0 0.0-0.3 10^3/uL Basophils # (Auto) 0.0 0.0-0.1 10^3/uL Immature Granulocyte # (Auto) 0.1 0.0-0.1 10^3/uL Sodium Level 137 135-145 MMOL/L Potassium Level 2.9 L 3.6-5.0 MMOL/L Chloride Level 108 H 98-107 MMOL/L Carbon Dioxide Level 19 L 21-32 MMOL/L Anion Gap 10 5-14 MMOL/L Blood Urea Nitrogen 6 L 7-18 MG/DL Creatinine 0.60 0.60-1.30 MG/DL Estimat Glomerular Filtration Rate 129 BUN/Creatinine Ratio 10 Glucose Level 96 70-105 MG/DL Calcium Level 8.3 L 8.5-10.1 MG/DL Corrected Calcium 9.2 8.5-10.1 MG/DL Total Bilirubin 0.6 0.1-1.0 MG/DL Aspartate Amino Transf (AST/SGOT) 14 5-34 U/L Alanine Aminotransferase (ALT/SGPT) 8 0-55 U/L Alkaline Phosphatase 128 40-136 U/L Total Protein 6.7 6.4-8.2 GM/DL Albumin 2.9 L 3.2-4.5 GM/DL OB - Assessment/Plan/Diagnosis Assessment Assessment: section Admission Dx 21 yo @ 39.1 Previous Hx of constipation and megacolon Admission Status: Inpatient Order (span 2 midnights) Reason for Inpatient Admission: RLTCS Plan Plan: Section SIDNEY CEDILLO DO Apr 22, 2022 07:19
[2022-04-22] MEDS ORDERED: HYDROcodone/APAP 5 MG/325 MG (LORTAB) TAB PO PRN (07:30)
[2022-04-22] MEDS ORDERED: NALOXONE 0.4 MG/ML 1 ML (NARCAN) VIAL IV PRN (07:30)
[2022-04-22] MEDS ORDERED: TETANUS,DIPTH,PERTUSS P/F (BOOSTRIX) 0.5 ML VIAL IM SCH (07:30)
[2022-04-22] MEDS ORDERED: OXYTOCIN PRE-MIX DRIP 500 ML IV SCH (07:30)
[2022-04-22] MEDS ORDERED: MEASLES,MUMPS,RUBELLA 1 EA INJ SC SCH (07:30)
[2022-04-22] MEDS ORDERED: ROPIVACAINE 5MG/ML 30ML VIAL ONE (07:34)
[2022-04-22] MEDS ORDERED: PHENYLEPHRINE 100 MCG/ML 10 ML (ANESTHESIA) SYR ONE (08:01)
[2022-04-22] MEDS: KETOROLAC 30 MG/ML VIAL IV SCH ×3 (09:56→20:47)
[2022-04-22] MEDS: HYDROcodone/APAP 5 MG/325 MG (LORTAB) TAB PO PRN ×2 (12:43→20:47)
[2022-04-22] MEDS ORDERED: CATHETER FLUSH 10 ML SYR IV SCH (14:00)
--- NOTE | 2022-04-22 15:28 | OPERATIVE REPORT ---
PREOPERATIVE DIAGNOSES: 1. A 21-year-old at 39 weeks and 1 day gestation. 2. Previous section x2. 3. History of megacolon and chronic constipation. POSTOPERATIVE DIAGNOSES: 1. A 21-year-old at 39 weeks and 1 day gestation. 2. Previous section x2. 3. History of megacolon and chronic constipation. PROCEDURE: Repeat low transverse section. SURGEON: Bassam Cedillo DO SUSPENDER MAKER: Anna Eden DNP who was necessary for manipulation and retraction throughout the procedure. ANESTHESIA: Spinal. ESTIMATED BLOOD LOSS: 500 mL URINE OUTPUT: 50 mL clear at end of the procedure. FLUIDS: 1000 mL lactated Ringer's solution. FINDINGS: Live male infant weighing 7 pounds 2 ounces, Apgars of 8 and 8. Grossly normal appearing uterus, bilateral fallopian tubes and ovaries. SPECIMEN SENT: None. INDICATIONS FOR PROCEDURE: This 21-year-old female, was a patient who had sought care with Dr Freire at the [facility]. She was scheduled for a repeat at 39 weeks; however, brought in the evening before due to history of megacolon and concerns with closing the fascia after the was performed. I had the patient came in last night and she was given several doses of MiraLax, which resulted in a bowel movement this morning prior to surgery. In the preoperative area, I reviewed with the patient the procedure and the risk. After all of her questions were answered, consent was obtained, the patient was taken to the operating room. OPERATIVE REPORT IN DETAIL: Once in the operating room, spinal anesthesia was found to be adequate, was placed in the supine position with leftward tilt, prepped and draped in normal sterile fashion. A timeout was performed. Anesthesia was tested and then make a Pfannenstiel skin incision through the previous existing scar using knife and carried down to the underlying fascia using Bovie cautery. The fascial incision extended laterally using Bovie cautery. Superior aspect of fascial incision was then grasped with Nicola clamps, tented up and dissected off the underlying rectus muscles. The inferior aspect of fascial incision was then grasped with Nicola clamps, tented up and dissected off the underlying rectus muscles. Rectus muscles were dissected down the midline sharply, exposing the peritoneum, which I entered bluntly and extended using blunt traction. Lauro ring retractor was placed in the peritoneal incision, which offers excellent lateral sidewall retraction. I identified lower uterine segment, was found to be thinned out. I made a low transverse incision to the vesicouterine peritoneum and bluntly dissected off the lower uterine segment, creating a bladder flap and then proceeded with my myotomy until membranes are visualized, at which point I extended the uterine incision laterally and superiorly using bandage scissors. Amniotomy was then performed using Allis clamp. Clear fluid was noted. was found vertex presentation with head is elevated up the incision and delivered through the incision where the nares and oropharynx were bulb suctioned. Anterior and posterior shoulders were delivered. The infant was brought to the operative field where the cord was doubly clamped and cut and infant was handed off to waiting nurses in attendance. Cord blood was collected. Three-vessel cord with intact placenta was delivered spontaneously thereafter. IV Pitocin is initiated to facilitate uterine contraction. Uterine fundus confirmed by manual massage. The uterus was then exteriorized and cleared of all endometrial clots and debris. I then proceeded with closing the uterine incision using 0 Vicryl suture in a running locked fashion. Second layer of imbricating 0 Monocryl was placed. Excellent hemostasis was noted after doing this. I then placed the uterus back in the pelvis and copiously irrigated the pelvis using normal saline. Once again, there was no active bleeding noted from any of my dissection planes. I placed Interceed antiadhesive over my low transverse incision. I removed the Lauro ring retractor and then proceeded with closing the peritoneum using 3-0 Vicryl suture in a running fashion. Rectus muscles were reapproximated with 3-0 Vicryl suture in interrupted fashion. The fascia was reapproximated using 0 Vicryl suture in a running fashion and the skin reapproximated using 4-0 Monocryl running subcuticular. Dermabond was applied to incision and sterile dressing with adhesive white tape. The patient tolerated the procedure well and was taken to recovery area in stable condition. Lap and sponge counts were correct at the end of the procedure. Instrument counts correct as well. Two grams of Ancef were given preoperatively for infection prophylaxis. Job ID: [id number] DocumentID: [id number] Dictated Date: 04/22/2022 11:20:57 General Studies Program Chair Date: 04/22/2022 15:26:00 Dictated By: BASSAM CEDILLO DO
[2022-04-22] MEDS: DOCUSATE SODIUM 100 MG (COLACE) CAP PO SCH ×2 (20:47→21:17)
[2022-04-23 00:03] VITALS: BP 109/62
[2022-04-23] MEDS: KETOROLAC 30 MG/ML VIAL IV SCH (03:22)
[2022-04-23] MEDS ORDERED: IBUPROFEN 600 MG (MOTRIN) TAB PO ONE (03:28)
[2022-04-23] MEDS: IBUPROFEN 600 MG (MOTRIN) TAB PO SCH ×4 (03:30→22:46)
[2022-04-23] MEDS: HYDROcodone/APAP 5 MG/325 MG (LORTAB) TAB PO PRN ×2 (03:33→22:46)
[2022-04-23 03:45] VITALS: BP 107/68
[2022-04-23 05:57] LABS: BASOPHILS % (AUTO) 0 % (0-10); EOSINOPHILS # (AUTO) 0.1 10^3/uL (0.0-0.3); EOSINOPHILS % (AUTO) 1 % (0-10); HEMATOCRIT 26 % (35-52); HEMOGLOBIN 8.4 g/dL (11.5-16.0); LYMPHOCYTES % (AUTO) 18 % (12-44); MEAN CORPUSCULAR HEMOGLOBIN 23 pg (25-34); MEAN CORPUSCULAR HGB CONC 32 g/dL (32-36); MEAN CORPUSCULAR VOLUME 71 fL (80-99); MEAN PLATELET VOLUME 10.4 fL (9.0-12.2); MONOCYTES # (AUTO) 0.7 10^3/uL (0.0-1.0); MONOCYTES % (AUTO) 6 % (0-12); NEUTROPHILS # (AUTO) 7.9 10^3/uL (1.8-7.8); NEUTROPHILS % (AUTO) 74 % (42-75); PLATELET COUNT 133 10^3/uL (130-400); WHITE BLOOD COUNT 10.7 10^3/uL (4.3-11.0)
--- NOTE | 2022-04-23 09:26 | Anesthesia-Regional Post-Op ---
Regional Patient Condition Mental Status: Alert, Oriented x3 Circulation: Same as Pre-Op Headache: Absent Sensation: Full Recovery Motor Block: Absent Post Op Complications Complications None Follow Up Care/Instructions Patient Instructions None needed. Anesthesia/Patient Condition Patient is doing well, no complaints, stable vital signs, no apparent adverse anesthesia problems. No complications reported per nursing. BERNABE ROSA CRNA Apr 23, 2022 09:26
[2022-04-23 09:48] VITALS: BP 98/55
[2022-04-23] MEDS: DOCUSATE SODIUM 100 MG (COLACE) CAP PO SCH ×2 (09:50→22:46)
[2022-04-23 15:19] VITALS: BP 108/66
[2022-04-23 22:19] VITALS: BP 105/68
[2022-04-24 03:49] VITALS: BP 115/80
[2022-04-24] MEDS: IBUPROFEN 600 MG (MOTRIN) TAB PO SCH ×2 (03:49→13:19)
--- NOTE | 2022-04-24 08:05 | Postpartum Progress Note ---
Note Note Day # 2 Subjective: Patient is without complaints. Ambulating, voiding. Tolerating a regular diet without nausea or vomiting. Normal lochia. Pain is well controlled with oral pain medications. Objective: Physical Exam: General - Alert and oriented, no apparent distress Abdomen - Soft, appropriately tender to palpation, non-distended, fundus firm at umbilicus Extremities - no edema, negative Hi's bilaterally Assessment: POD2 RLTCS Acute blood loss anemia Plan: Routine care. Encourage breast feeding. Encourage ambulation. Ferrous sulfate supplementation. Plan for discharge today Vitals - Labs Vital Signs - I&O Vital Signs Date Time Temp Pulse Resp B/P (MAP) Pulse Ox O2 Delivery O2 Flow Rate FiO2 04/24/22 03:49 36.5 72 18 115/80 (92) 100 Room Air 04/23/22 22:19 36.3 77 18 105/68 (80) 96 Room Air 04/23/22 15:19 36.5 71 18 108/66 (80) 97 Room Air 04/23/22 09:48 36.8 71 18 98/55 (69) 95 Room Air Labs Microbiology 04/21/22 MRSA Screen - Final, Complete MRSA not isolated SIDNEY CEDILLO DO Apr 24, 2022 08:05
[2022-04-24] MEDS ORDERED: ACHD5005 PO (08:06)
[2022-04-24] MEDS ORDERED: DOCU100C37 PO (08:06)
[2022-04-24] MEDS ORDERED: IBUP-844 PO (08:06)
--- NOTE | 2022-04-24 08:06 | Discharge Inst-Women's Service ---
Discharge Inst-Women's Serv Depart Medication/Instructions New, Converted or Re-Newed RX: Transmitted to Pharmacy Final Diagnosis POD2 RLTCS Problems Reviewed?: Yes Consults/Follow Up Additional Follow Up: Yes Orders/Referrals Dr. Youssef in 7-[address] Freire in 6 weeks Activity Activity: Activity as Tolerated Driving Instructions: No Driving for 1 Week NO SMOKING: NO SMOKING Nothing Inside Vagina: No Douching, No [place], No Tampons Diet Discharge Diet: No Restrictions Symptoms to Report to : Bleeding Excessive, Pain Increased, Fever Over 101 Degrees F, Vaginal Bleeding Increase, Questions/Concerns For Any Problems or Questions: Contact Your Physician Skin/Wound Care Infection Signs and Symptoms: Increased Redness, Foul Odor of Wound, Increased Drainage, Skin Itchy or Has a Rash, Increased Swelling, Temperature Above 101 F Operative Area Clean and Dry: Keep Incision Clean/Dry Stitches/Edu/Dermabond: Dermabond, Care of Stitches Bathing Instructions: SIDNEY Walters DO Apr 24, 2022 08:06
[2022-04-24] MEDS: DOCUSATE SODIUM 100 MG (COLACE) CAP PO SCH (09:00)
[2022-04-24 13:15] VITALS: BP 117/69
[2022-04-24] MEDS: HYDROcodone/APAP 5 MG/325 MG (LORTAB) TAB PO PRN (13:38)
== END 2022-04-24 14:50 | disposition home or self-care (01) | DRG 787 ==
LOC: LDRP 17:36 → WS 04-23 09:17
PROVIDERS: ADMIT Obstetrics & Gynecology; ATTEND Obstetrics & Gynecology
PROC: 10D00Z1 Extraction of Products of Conception, Low, Open Approach (ICD-10-PCS; principal; 2022-04-22 07:19)
DX: O34.211 Maternal care for low transverse scar from previous cesarean delivery (principal); D62 Acute posthemorrhagic anemia; O99.62 Diseases of the digestive system complicating childbirth; Z37.0 Single live birth; O90.81 Anemia of the puerperium; K59.09 Other constipation; Z3A.39 39 weeks gestation of pregnancy; Z87.19 Personal history of other diseases of the digestive system
CPT/HCPCS: 36415; 80053; 85025; 86850; 86900; 86901; 87081; 94664